=== PATIENT | female | born 1945 | race Caucasian/White ===

== ENCOUNTER 2020-01-28 20:04 | Inpatient (IN) ==
[2020-01-28] MEDS ORDERED: Heparin 5000 UNITS/ML 1 mL VIAL SUBCUT SCH (21:00)
[2020-01-28] MEDS ORDERED: Propofol 10 mg/ml 100 ML BTL 100 ML IV SCH ×2 (21:00→22:11)
[2020-01-28 21:07] LABS: Activated Partial Thrombo Time 29.1 seconds (26.0-38.0); INR 1.8 (0.82-1.09)
[2020-01-28 21:11] LABS: Hematocrit 30 % (35-47); Hemoglobin 9.9 g/dL (12.0-16.0); Mean Corpuscular HGB Conc 33 g/dL (31-36); Mean Corpuscular Hemoglobin 25 pg (27-31); Mean Corpuscular Volume 74 fL (80-97); Mean Platelet Volume 7.8 fL (7.4-10.4); Platelet Count 347 10^3/uL (150-450); Red Blood Count 4.04 10^6 /uL (3.70-4.87); Red Cell Distribution Width 17 % (10-15); White Blood Count 12.3 10^3/uL (3.5-10.8)
[2020-01-28 21:12] LABS: ABS Lymphocytes 0.4 10^3/ul (1.0-4.8); ABS Monocytes 0.6 10^3/ul (0-0.8); ABS Neutrophils 11.2 10^3/ul (1.5-7.7); Lymphocyte % 3.4 %
[2020-01-28 21:14] LABS: Urine Appearance Cloudy; Urine Bilirubin Negative (Negative); Urine Blood Negative (Negative); Urine Color Yellow; Urine Glucose 2+(150 mg/dL) (Negative); Urine Ketones Negative (Negative); Urine Nitrite Negative (Negative); Urine Protein 2+(100 mg/dL) (Negative); Urine Urobilinogen Negative (Negative)
[2020-01-28 21:15] LABS: Albumin 3.5 g/dL (3.2-5.2); Albumin/Globulin Ratio 1.3 (1-3); BUN/Creatinine Ratio 23.8 (8-20); EGFR African American 111.5 (>60); EGFR Non-African American 92.1 (>60); Globulin 2.6 g/dL (2-4); Potassium 3.7 mmol/L (3.5-5.0); Total Bilirubin 0.4 mg/dL (0.2-1.0); Total Protein 6.1 g/dL (6.4-8.9)
[2020-01-28 21:19] LABS: Urine Bacteria Absent (Absent); Urine Red Blood Cell 3+(>10/hpf) (Absent); Urine Squamous Epithelial Cell Present (Absent); Urine White Blood Cell Trace(0-5/hpf) (Absent)
[2020-01-28] MEDS ORDERED: Dexamethasone IV 4 MG/ML VIAL 1 ml VIAL IV SLOW PU ONE (21:31)
[2020-01-28] MEDS ORDERED: Remdesivir 5 MG/ML LIQ IV Vial 200 MG in NS 0.9% 250 ml 210 ML IV ONE (21:32)
[2020-01-28 21:45] LABS: Magnesium 1.5 mg/dL (1.9-2.7)
[2020-01-28 21:47] LABS: Troponin I 0.01 ng/mL (<0.03)
[2020-01-28] MEDS ORDERED: Magnesium Sulfate IV 3 GM in NS 0.9% 100 ml BAG 100 ML IVPB ONE (22:04)
[2020-01-28] MEDS: Pantoprazole VIAL 40 MG VIAL IV SCH (22:08)
[2020-01-28] MEDS: Propofol* 20 ML VIAL - FOR IV LINE PRIMING ONLY SCH (22:23)
[2020-01-28] MEDS: Heparin DRIP 25,000 UNITS BAG 25,000 UNITS/500 ML BAG IV SCH (22:42)
[2020-01-28] MEDS ORDERED: Heparin 5000 UNITS/ML 1 mL VIAL IV SCH (23:00)
[2020-01-28] MEDS ORDERED: Atropine 1 MG/ML INJ 1 ML VIAL IV PUSH PRN (23:42)
[2020-01-28] MEDS ORDERED: Atropine 0.1 MG/ML 10 ml SYR (1 mg) ONE (23:44)
[2020-01-28] MEDS ORDERED: Atropine 0.1 MG/ML 10 ml SYR (1 mg) IV PUSH PRN (23:46)
[2020-01-29] MEDS: Chlorhexidine MOUTHWASH 0.12% 15 ML UDC TOPICAL SCH ×7 (01:14→23:14)
[2020-01-29] MEDS ORDERED: Midazolam 5 mg/5 ml VIAL 1 mg/ml 5 ml VIAL (5 mg) IV SLOW PU ONE (04:14)
[2020-01-29] MEDS ORDERED: Midazolam 5 mg/5 ml VIAL 1 mg/ml 5 ml VIAL (5 mg) ONE (04:16)
[2020-01-29] MEDS ORDERED: Dextrose 50% Syringe 50 ml 25 GM/50 ML SYRINGE IV PUSH PRN (04:48)
[2020-01-29] MEDS ORDERED: fentaNYL INFUSION 50 MCG/ML 2,500 MCG/50 ML BAG IV SCH ×2 (05:00→16:00)
[2020-01-29 05:05] LABS: Hematocrit 28 % (35-47); Mean Corpuscular HGB Conc 33 g/dL (31-36); Mean Corpuscular Hemoglobin 24 pg (27-31); Mean Corpuscular Volume 73 fL (80-97); Mean Platelet Volume 7.7 fL (7.4-10.4); Platelet Count 285 10^3/uL (150-450); Red Blood Count 3.78 10^6 /uL (3.70-4.87); Red Cell Distribution Width 17 % (10-15); White Blood Count 8.4 10^3/uL (3.5-10.8)
[2020-01-29 05:08] LABS: BUN/Creatinine Ratio 25.4 (8-20); Calcium 7.8 mg/dL (8.6-10.3); EGFR African American 120.2 (>60); EGFR Non-African American 99.4 (>60); Potassium 3.7 mmol/L (3.5-5.0)
[2020-01-29 05:40] LABS: Magnesium 2.2 mg/dL (1.9-2.7)
[2020-01-29] MEDS ORDERED: Furosemide 40 mg/4 ml IV VIAL IV ONE (07:19)
[2020-01-29] MEDS ORDERED: Furosemide 40 mg/4 ml IV VIAL ONE (07:20)
[2020-01-29 08:44] LABS: ABS Lymphocytes 0.6 10^3/ul (1.0-4.8); ABS Monocytes 0.5 10^3/ul (0-0.8); ABS Neutrophils 7.4 10^3/ul (1.5-7.7); Lymphocyte % 6.6 %; Microcytosis 2+
[2020-01-29 08:46] LABS: Acanthocytes 1+
[2020-01-29 08:47] LABS: Burr Cells 2+
[2020-01-29] MEDS ORDERED: fentaNYL 250 mcg/5 ml 50 MCG/ML 5 ml VIAL (250 MCG) ONE (10:14)
[2020-01-29] MEDS: Propofol* 20 ML VIAL - FOR IV LINE PRIMING ONLY SCH ×2 (11:00→20:26)
[2020-01-29] MEDS ORDERED: Midazolam 50 MG VIAL IV DRIP 50 ML IV SCH (16:00)
[2020-01-29 17:30] LABS: BUN/Creatinine Ratio 26.5 (8-20); Calcium 7.9 mg/dL (8.6-10.3); EGFR African American 102.1 (>60); EGFR Non-African American 84.4 (>60); Magnesium 2.1 mg/dL (1.9-2.7); Phosphorus 2.9 mg/dL (2.5-5.0); Potassium 3.5 mmol/L (3.5-5.0)
[2020-01-29] MEDS: Pantoprazole VIAL 40 MG VIAL IV SCH (22:10)
[2020-01-29] MEDS: Remdesivir 5 MG/ML LIQ IV Vial 100 MG in NS 0.9% 250 ml 230 ML IV SCH (22:10)
[2020-01-29] MEDS: Dexamethasone IV 4 MG/ML VIAL 1 ml VIAL IV SLOW PU SCH (22:10)
[2020-01-29] MEDS ORDERED: Potassium Chloride LIQUID 20 MEQ/15 ML LIQUID PO ONE (22:41)
[2020-01-29] MEDS ORDERED: Lactated Ringers 1000 ml BAG 500 ML IV SCH (23:00)
[2020-01-30] MEDS: Chlorhexidine MOUTHWASH 0.12% 15 ML UDC TOPICAL SCH ×5 (03:46→20:22)
[2020-01-30 05:28] LABS: ABS Lymphocytes 0.2 10^3/ul (1.0-4.8); ABS Monocytes 0.4 10^3/ul (0-0.8); ABS Neutrophils 9.2 10^3/ul (1.5-7.7); Hematocrit 28 % (35-47); Hemoglobin 9.1 g/dL (12.0-16.0); Lymphocyte % 2.5 %; Mean Corpuscular HGB Conc 32 g/dL (31-36); Mean Corpuscular Hemoglobin 24 pg (27-31); Mean Corpuscular Volume 75 fL (80-97); Mean Platelet Volume 7.7 fL (7.4-10.4); Platelet Count 284 10^3/uL (150-450); Red Blood Count 3.78 10^6 /uL (3.70-4.87); Red Cell Distribution Width 18 % (10-15); White Blood Count 9.9 10^3/uL (3.5-10.8)
[2020-01-30 05:45] LABS: Albumin 3.3 g/dL (3.2-5.2); Albumin/Globulin Ratio 1.4 (1-3); Calcium 7.8 mg/dL (8.6-10.3); EGFR African American 91.2 (>60); EGFR Non-African American 75.3 (>60); Globulin 2.4 g/dL (2-4); Magnesium 2.1 mg/dL (1.9-2.7); Potassium 4.2 mmol/L (3.5-5.0); Total Bilirubin 0.6 mg/dL (0.2-1.0); Total Protein 5.7 g/dL (6.4-8.9)
[2020-01-30] MEDS: Heparin DRIP 25,000 UNITS BAG 25,000 UNITS/500 ML BAG IV SCH (07:42)
[2020-01-30] MEDS: Propofol* 20 ML VIAL - FOR IV LINE PRIMING ONLY SCH (09:09)
[2020-01-30] MEDS ORDERED: CALCIUM GLUCONATE 1GM/50ML NS 1 GM/50 ML BAG IV ONE (09:28)
[2020-01-30] MEDS ORDERED: fentaNYL INFUSION 50 MCG/ML 2,500 MCG/50 ML BAG IV SCH (10:50)
[2020-01-30] MEDS: Midazolam 50 MG VIAL IV DRIP 50 ML IV SCH (11:12)
[2020-01-30] MEDS ORDERED: Midazolam 5 mg/5 ml VIAL 1 mg/ml 5 ml VIAL (5 mg) IV SLOW PU ONE (12:15)
[2020-01-30] MEDS: Enoxaparin 30 MG/0.3 ML SYR SUBCUT SCH ×2 (13:41→22:39)
[2020-01-30] MEDS ORDERED: Polyethylene Glycol 3350 17 GM PACKET PO ONE (15:00)
[2020-01-30] MEDS: Docusate LIQ 100 MG/10 ML UDC PO PRN (17:21)
[2020-01-30] MEDS: Remdesivir 5 MG/ML LIQ IV Vial 100 MG in NS 0.9% 250 ml 230 ML IV SCH (22:38)
[2020-01-30] MEDS: Pantoprazole VIAL 40 MG VIAL IV SCH (22:39)
[2020-01-30] MEDS: Dexamethasone IV 4 MG/ML VIAL 1 ml VIAL IV SLOW PU SCH (22:39)
[2020-01-31] MEDS: Chlorhexidine MOUTHWASH 0.12% 15 ML UDC TOPICAL SCH ×6 (00:25→21:29)
[2020-01-31 05:11] LABS: Albumin 3.3 g/dL (3.2-5.2); Albumin/Globulin Ratio 1.3 (1-3); BUN/Creatinine Ratio 36.1 (8-20); Calcium 8.2 mg/dL (8.6-10.3); EGFR African American 115.7 (>60); EGFR Non-African American 95.6 (>60); Globulin 2.5 g/dL (2-4); Potassium 4.4 mmol/L (3.5-5.0); Total Bilirubin 0.8 mg/dL (0.2-1.0); Total Protein 5.8 g/dL (6.4-8.9)
[2020-01-31] MEDS: Midazolam 50 MG VIAL IV DRIP 50 ML IV SCH (07:08)
[2020-01-31] MEDS: Enoxaparin 30 MG/0.3 ML SYR SUBCUT SCH ×2 (09:02→23:09)
[2020-01-31] MEDS ORDERED: Polyethylene Glycol 3350 17 GM PACKET PO ONE (15:43)
[2020-01-31] MEDS: fentaNYL INFUSION 50 MCG/ML 2,500 MCG/50 ML BAG IV SCH (15:52)
[2020-01-31] MEDS: Docusate LIQ 100 MG/10 ML UDC PO PRN (16:38)
[2020-01-31] MEDS: Remdesivir 5 MG/ML LIQ IV Vial 100 MG in NS 0.9% 250 ml 230 ML IV SCH (23:08)
[2020-01-31] MEDS: Dexamethasone IV 4 MG/ML VIAL 1 ml VIAL IV SLOW PU SCH (23:09)
[2020-01-31] MEDS: Pantoprazole VIAL 40 MG VIAL IV SCH (23:09)
[2020-02-01] MEDS: Chlorhexidine MOUTHWASH 0.12% 15 ML UDC TOPICAL SCH ×7 (01:31→20:31)
[2020-02-01] MEDS: Midazolam 50 MG VIAL IV DRIP 50 ML IV SCH (03:29)
[2020-02-01 04:46] LABS: ABS Lymphocytes 0.2 10^3/ul (1.0-4.8); ABS Monocytes 0.4 10^3/ul (0-0.8); ABS Neutrophils 8.4 10^3/ul (1.5-7.7); Hematocrit 29 % (35-47); Hemoglobin 9.1 g/dL (12.0-16.0); Mean Corpuscular HGB Conc 32 g/dL (31-36); Mean Corpuscular Hemoglobin 24 pg (27-31); Mean Corpuscular Volume 75 fL (80-97); Mean Platelet Volume 7.9 fL (7.4-10.4); Platelet Count 259 10^3/uL (150-450); Red Blood Count 3.81 10^6 /uL (3.70-4.87); Red Cell Distribution Width 18 % (10-15); White Blood Count 8.9 10^3/uL (3.5-10.8)
[2020-02-01 05:01] LABS: Albumin/Globulin Ratio 1.4 (1-3); BUN/Creatinine Ratio 38.9 (8-20); EGFR African American 133.2 (>60); EGFR Non-African American 110.1 (>60); Globulin 2.2 g/dL (2-4); Potassium 4.2 mmol/L (3.5-5.0); Total Bilirubin 0.7 mg/dL (0.2-1.0); Total Protein 5.2 g/dL (6.4-8.9)
[2020-02-01] MEDS: Docusate LIQ 100 MG/10 ML UDC PO PRN (08:22)
[2020-02-01] MEDS: Enoxaparin 30 MG/0.3 ML SYR SUBCUT SCH ×2 (08:22→22:22)
[2020-02-01] MEDS: fentaNYL INFUSION 50 MCG/ML 2,500 MCG/50 ML BAG IV SCH (13:53)
[2020-02-01] MEDS: Pantoprazole VIAL 40 MG VIAL IV SCH (22:22)
[2020-02-01] MEDS: Dexamethasone IV 4 MG/ML VIAL 1 ml VIAL IV SLOW PU SCH (22:22)
[2020-02-01] MEDS: Metoprolol Tartrate 5 mg VIAL 5 ml VIAL (1 mg/ml) IV PRN (22:23)
[2020-02-01] MEDS: Remdesivir 5 MG/ML LIQ IV Vial 100 MG in NS 0.9% 250 ml 230 ML IV SCH (22:36)
[2020-02-02] MEDS: Midazolam 50 MG VIAL IV DRIP 50 ML IV SCH (00:21)
[2020-02-02] MEDS: Chlorhexidine MOUTHWASH 0.12% 15 ML UDC TOPICAL SCH ×6 (00:44→20:26)
[2020-02-02 05:01] LABS: ABS Lymphocytes 0.2 10^3/ul (1.0-4.8); ABS Monocytes 0.4 10^3/ul (0-0.8); ABS Neutrophils 9.2 10^3/ul (1.5-7.7); Hematocrit 29 % (35-47); Hemoglobin 9.1 g/dL (12.0-16.0); Lymphocyte % 1.8 %; Mean Corpuscular HGB Conc 31 g/dL (31-36); Mean Corpuscular Hemoglobin 24 pg (27-31); Mean Corpuscular Volume 76 fL (80-97); Mean Platelet Volume 7.9 fL (7.4-10.4); Platelet Count 326 10^3/uL (150-450); Red Blood Count 3.85 10^6 /uL (3.70-4.87); Red Cell Distribution Width 18 % (10-15); White Blood Count 9.8 10^3/uL (3.5-10.8)
[2020-02-02 05:38] LABS: Albumin/Globulin Ratio 1.4 (1-3); BUN/Creatinine Ratio 38.5 (8-20); Calcium 8.2 mg/dL (8.6-10.3); EGFR African American 139.1 (>60); Globulin 2.2 g/dL (2-4); Potassium 4.8 mmol/L (3.5-5.0); Total Bilirubin 0.4 mg/dL (0.2-1.0); Total Protein 5.2 g/dL (6.4-8.9)
[2020-02-02] MEDS: Insulin GLARGINE 100 un/ml 10 ml VIAL SUBCUT SCH (09:17)
[2020-02-02] MEDS: Enoxaparin 30 MG/0.3 ML SYR SUBCUT SCH ×2 (09:18→21:25)
[2020-02-02] MEDS: fentaNYL INFUSION 50 MCG/ML 2,500 MCG/50 ML BAG IV SCH (13:00)
[2020-02-02] MEDS: Metoprolol Tartrate 5 mg VIAL 5 ml VIAL (1 mg/ml) IV PRN (15:40)
[2020-02-02] MEDS: Docusate LIQ 100 MG/10 ML UDC PO PRN (20:26)
[2020-02-02] MEDS: Dexamethasone IV 4 MG/ML VIAL 1 ml VIAL IV SLOW PU SCH (21:25)
[2020-02-02] MEDS: Pantoprazole VIAL 40 MG VIAL IV SCH (21:26)
[2020-02-02] MEDS: Remdesivir 5 MG/ML LIQ IV Vial 100 MG in NS 0.9% 250 ml 230 ML IV SCH (21:44)
[2020-02-03] MEDS: Chlorhexidine MOUTHWASH 0.12% 15 ML UDC TOPICAL SCH ×7 (00:22→23:22)
[2020-02-03] MEDS: Midazolam 50 MG VIAL IV DRIP 50 ML IV SCH (01:10)
[2020-02-03 04:23] LABS: ABS Lymphocytes 0.2 10^3/ul (1.0-4.8); ABS Monocytes 0.9 10^3/ul (0-0.8); ABS Neutrophils 11.3 10^3/ul (1.5-7.7); Eosinophil % 0.1 %; Hematocrit 30 % (35-47); Hemoglobin 9.6 g/dL (12.0-16.0); Lymphocyte % 1.9 %; Mean Corpuscular HGB Conc 32 g/dL (31-36); Mean Corpuscular Hemoglobin 24 pg (27-31); Mean Corpuscular Volume 75 fL (80-97); Mean Platelet Volume 7.8 fL (7.4-10.4); Platelet Count 353 10^3/uL (150-450); Red Blood Count 4.03 10^6 /uL (3.70-4.87); Red Cell Distribution Width 18 % (10-15); White Blood Count 12.5 10^3/uL (3.5-10.8)
[2020-02-03 04:39] LABS: Albumin 3.1 g/dL (3.2-5.2); Albumin/Globulin Ratio 1.3 (1-3); BUN/Creatinine Ratio 46.8 (8-20); Calcium 8.5 mg/dL (8.6-10.3); EGFR African American 156.3 (>60); EGFR Non-African American 129.2 (>60); Globulin 2.4 g/dL (2-4); Magnesium 1.9 mg/dL (1.9-2.7); Potassium 4.9 mmol/L (3.5-5.0); Total Bilirubin 0.5 mg/dL (0.2-1.0); Total Protein 5.5 g/dL (6.4-8.9)
[2020-02-03] MEDS: Insulin GLARGINE 100 un/ml 10 ml VIAL SUBCUT SCH (07:32)
[2020-02-03] MEDS: fentaNYL INFUSION 50 MCG/ML 2,500 MCG/50 ML BAG IV SCH (10:30)
[2020-02-03] MEDS: Enoxaparin 30 MG/0.3 ML SYR SUBCUT SCH ×2 (10:37→23:22)
[2020-02-03] MEDS: Metoprolol Tartrate 5 mg VIAL 5 ml VIAL (1 mg/ml) IV PRN (11:33)
[2020-02-03] MEDS ORDERED: Furosemide 40 mg/4 ml IV VIAL IV SLOW PU ONE (15:44)
[2020-02-03] MEDS: Dexamethasone IV 4 MG/ML VIAL 1 ml VIAL IV SLOW PU SCH (23:22)
[2020-02-03] MEDS: Docusate LIQ 100 MG/10 ML UDC PO PRN (23:22)
[2020-02-03] MEDS: Pantoprazole VIAL 40 MG VIAL IV SCH (23:22)
[2020-02-04 04:22] LABS: ABS Basophils 0.1 10^3/ul (0-0.2); ABS Lymphocytes 0.2 10^3/ul (1.0-4.8); ABS Monocytes 1.1 10^3/ul (0-0.8); ABS Neutrophils 13.2 10^3/ul (1.5-7.7); Eosinophil % 0.2 %; Hematocrit 32 % (35-47); Lymphocyte % 1.3 %; Mean Corpuscular HGB Conc 31 g/dL (31-36); Mean Corpuscular Hemoglobin 24 pg (27-31); Mean Corpuscular Volume 76 fL (80-97); Mean Platelet Volume 8.3 fL (7.4-10.4); Platelet Count 354 10^3/uL (150-450); Red Blood Count 4.24 10^6 /uL (3.70-4.87); Red Cell Distribution Width 18 % (10-15); White Blood Count 14.6 10^3/uL (3.5-10.8)
[2020-02-04 04:43] LABS: Anion Gap 4 mmol/L (2-11); BUN/Creatinine Ratio 42.6 (8-20); Blood Urea Nitrogen 23 mg/dL (6-24); CO2 Carbon Dioxide 39 mmol/L (22-32); Chloride 96 mmol/L (101-111); EGFR African American 133.2 (>60); EGFR Non-African American 110.1 (>60); Glucose 331 mg/dL (70-100); Sodium 139 mmol/L (135-145)
[2020-02-04 05:01] LABS: ALT 54 U/L (7-52); AST 49 U/L (13-39); Albumin 2.9 g/dL (3.2-5.2); Albumin/Globulin Ratio 1.2 (1-3); Alkaline Phosphatase 113 U/L (34-104); Calcium 8.6 mg/dL (8.6-10.3); Globulin 2.5 g/dL (2-4); Phosphorus 4.3 mg/dL (2.5-5.0); Total Protein 5.4 g/dL (6.4-8.9)
[2020-02-04] MEDS: Chlorhexidine MOUTHWASH 0.12% 15 ML UDC TOPICAL SCH ×5 (05:53→20:31)
[2020-02-04] MEDS: Insulin GLARGINE 100 un/ml 10 ml VIAL SUBCUT SCH (08:35)
[2020-02-04] MEDS: Enoxaparin 30 MG/0.3 ML SYR SUBCUT SCH ×2 (09:04→22:45)
[2020-02-04 12:49] LABS: Urine Appearance Cloudy; Urine Bilirubin Negative (Negative); Urine Blood Negative (Negative); Urine Color Yellow; Urine Glucose 3+(>=500 mg/dL) (Negative); Urine Ketones Negative (Negative); Urine Nitrite Negative (Negative); Urine Protein Negative (Negative); Urine Specific Gravity 1.026 (1.010-1.030); Urine Urobilinogen Positive (Negative)
[2020-02-04] MEDS: Dexamethasone IV 4 MG/ML VIAL 1 ml VIAL IV SLOW PU SCH (22:45)
[2020-02-04] MEDS: Pantoprazole VIAL 40 MG VIAL IV SCH (22:45)
[2020-02-05] MEDS: Chlorhexidine MOUTHWASH 0.12% 15 ML UDC TOPICAL SCH ×7 (00:14→23:52)
[2020-02-05] MEDS: fentaNYL 100 mcg/2 ml 50 MCG/ML VIAL IV SLOW PU PRN (01:31)
[2020-02-05] MEDS: Metoprolol Tartrate 5 mg VIAL 5 ml VIAL (1 mg/ml) IV PRN (01:42)
[2020-02-05] MEDS ORDERED: Midazolam 50 MG VIAL IV DRIP 50 ML IV SCH (02:30)
[2020-02-05] MEDS: cefTRIAXone 1 gm/50 mL NS BAG 1 GM/50 ML BAG IVPB SCH (02:44)
[2020-02-05] MEDS ORDERED: Norepinephrine 16MCG/ML IVPRE 4,000 MCG/250 ML BAG IV ONE (03:35)
[2020-02-05 04:36] LABS: Hematocrit 33 % (35-47); Hemoglobin 10.2 g/dL (12.0-16.0); Mean Corpuscular HGB Conc 31 g/dL (31-36); Mean Corpuscular Hemoglobin 24 pg (27-31); Mean Corpuscular Volume 76 fL (80-97); Mean Platelet Volume 8.5 fL (7.4-10.4); Platelet Count 415 10^3/uL (150-450); Red Blood Count 4.32 10^6 /uL (3.70-4.87); Red Cell Distribution Width 18 % (10-15); White Blood Count 13.1 10^3/uL (3.5-10.8)
[2020-02-05 04:46] LABS: Albumin/Globulin Ratio 1.1 (1-3); BUN/Creatinine Ratio 42.6 (8-20); Calcium 8.8 mg/dL (8.6-10.3); EGFR African American 115.7 (>60); EGFR Non-African American 95.6 (>60); Globulin 2.8 g/dL (2-4); Total Bilirubin 0.6 mg/dL (0.2-1.0); Total Protein 5.8 g/dL (6.4-8.9)
[2020-02-05 04:53] LABS: Potassium 5.4 mmol/L (3.5-5.0)
[2020-02-05] MEDS ORDERED: Norepinephrine 16MCG/ML IVPRE 4,000 MCG/250 ML BAG IV SCH (06:00)
[2020-02-05] MEDS: Insulin GLARGINE 100 un/ml 10 ml VIAL SUBCUT SCH (08:19)
[2020-02-05] MEDS: Enoxaparin 30 MG/0.3 ML SYR SUBCUT SCH ×2 (08:26→22:07)
[2020-02-05] MEDS: Pantoprazole VIAL 40 MG VIAL IV SCH (22:07)
[2020-02-05] MEDS: Dexamethasone IV 4 MG/ML VIAL 1 ml VIAL IV SLOW PU SCH (22:07)
[2020-02-06] MEDS: cefTRIAXone 1 gm/50 mL NS BAG 1 GM/50 ML BAG IVPB SCH (02:21)
[2020-02-06] MEDS: fentaNYL 100 mcg/2 ml 50 MCG/ML VIAL IV SLOW PU PRN ×2 (03:06→03:18)
[2020-02-06] MEDS ORDERED: fentaNYL 100 mcg/2 ml 50 MCG/ML VIAL ONE (03:14)
[2020-02-06] MEDS: Chlorhexidine MOUTHWASH 0.12% 15 ML UDC TOPICAL SCH ×4 (03:22→15:55)
[2020-02-06 03:56] LABS: Hematocrit 33 % (35-47); Hemoglobin 10.5 g/dL (12.0-16.0); Mean Corpuscular HGB Conc 32 g/dL (31-36); Mean Corpuscular Hemoglobin 24 pg (27-31); Mean Corpuscular Volume 76 fL (80-97); Mean Platelet Volume 8.5 fL (7.4-10.4); Platelet Count 403 10^3/uL (150-450); Red Cell Distribution Width 18 % (10-15); White Blood Count 14.7 10^3/uL (3.5-10.8)
[2020-02-06 04:09] LABS: BUN/Creatinine Ratio 51.8 (8-20); Calcium 8.7 mg/dL (8.6-10.3); EGFR African American 127.7 (>60); EGFR Non-African American 105.5 (>60); Magnesium 2.2 mg/dL (1.9-2.7)
[2020-02-06 04:10] LABS: Potassium 5.2 mmol/L (3.5-5.0)
[2020-02-06] MEDS: Insulin GLARGINE 100 un/ml 10 ml VIAL SUBCUT SCH (08:46)
[2020-02-06] MEDS: Enoxaparin 30 MG/0.3 ML SYR SUBCUT SCH ×2 (08:54→21:38)
[2020-02-06] MEDS: Pantoprazole VIAL 40 MG VIAL IV SCH (21:38)
[2020-02-06] MEDS: D5LR 1000 ml BAG 1,000 ML IV SCH (23:54)
[2020-02-07] MEDS: cefTRIAXone 1 gm/50 mL NS BAG 1 GM/50 ML BAG IVPB SCH (02:21)
[2020-02-07 04:19] LABS: ABS Basophils 0.1 10^3/ul (0-0.2); ABS Lymphocytes 0.7 10^3/ul (1.0-4.8); ABS Monocytes 1.3 10^3/ul (0-0.8); ABS Neutrophils 9.4 10^3/ul (1.5-7.7); Eosinophil % 0.3 %; Hematocrit 32 % (35-47); Lymphocyte % 6.1 %; Mean Corpuscular HGB Conc 31 g/dL (31-36); Mean Corpuscular Hemoglobin 24 pg (27-31); Mean Corpuscular Volume 76 fL (80-97); Mean Platelet Volume 8.1 fL (7.4-10.4); Platelet Count 365 10^3/uL (150-450); Red Blood Count 4.21 10^6 /uL (3.70-4.87); Red Cell Distribution Width 19 % (10-15); White Blood Count 11.5 10^3/uL (3.5-10.8)
[2020-02-07 04:35] LABS: BUN/Creatinine Ratio 61.9 (8-20); Calcium 8.4 mg/dL (8.6-10.3); EGFR Non-African American 147.1 (>60); Magnesium 2.2 mg/dL (1.9-2.7); Potassium 4.1 mmol/L (3.5-5.0)
[2020-02-07] MEDS: Enoxaparin 30 MG/0.3 ML SYR SUBCUT SCH ×2 (08:14→21:57)
[2020-02-07] MEDS: Metoprolol Tartrate 5 mg VIAL 5 ml VIAL (1 mg/ml) IV PRN (16:11)
[2020-02-07] MEDS: D5LR 1000 ml BAG 1,000 ML IV SCH (18:22)
[2020-02-07] MEDS: Pantoprazole VIAL 40 MG VIAL IV SCH (21:58)
[2020-02-08] MEDS: cefTRIAXone 1 gm/50 mL NS BAG 1 GM/50 ML BAG IVPB SCH (02:07)
[2020-02-08 04:57] LABS: ABS Eosinophils 0.1 10^3/ul (0-0.6); ABS Lymphocytes 0.5 10^3/ul (1.0-4.8); ABS Monocytes 1.2 10^3/ul (0-0.8); BUN/Creatinine Ratio 44.2 (8-20); Calcium 7.9 mg/dL (8.6-10.3); EGFR African American 173.2 (>60); EGFR Non-African American 143.1 (>60); Eosinophil % 1.3 %; Hematocrit 31 % (35-47); Lymphocyte % 5.2 %; Mean Corpuscular HGB Conc 32 g/dL (31-36); Mean Corpuscular Hemoglobin 25 pg (27-31); Mean Corpuscular Volume 77 fL (80-97); Mean Platelet Volume 8.4 fL (7.4-10.4); Nucleated Red Blood Cells % 0.2; Phosphorus 2.6 mg/dL (2.5-5.0); Platelet Count 307 10^3/uL (150-450); Potassium 3.8 mmol/L (3.5-5.0); Red Blood Count 4.06 10^6 /uL (3.70-4.87); Red Cell Distribution Width 18 % (10-15); White Blood Count 9.8 10^3/uL (3.5-10.8)
[2020-02-08] MEDS: Enoxaparin 30 MG/0.3 ML SYR SUBCUT SCH ×2 (08:45→21:40)
[2020-02-08] MEDS: SPIRIVA Respimat (tiotropium) 2.5 mcg/inh Inhaler INH SCH (11:48)
[2020-02-08] MEDS: D5LR 1000 ml BAG 1,000 ML IV SCH (14:32)
[2020-02-08] MEDS ORDERED: TPN 24 HR with D10W 1000 ml BAG 1,000 ML, Amino Acid Infusion 10% 850 ML, Sterile Water... IV SCH (17:00)
[2020-02-08] MEDS: Pantoprazole VIAL 40 MG VIAL IV SCH (21:41)
[2020-02-09] MEDS: cefTRIAXone 1 gm/50 mL NS BAG 1 GM/50 ML BAG IVPB SCH (03:30)
[2020-02-09 04:40] LABS: ABS Eosinophils 0.2 10^3/ul (0-0.6); ABS Lymphocytes 0.7 10^3/ul (1.0-4.8); ABS Monocytes 1.3 10^3/ul (0-0.8); ABS Neutrophils 10.3 10^3/ul (1.5-7.7); Eosinophil % 1.9 %; Hematocrit 30 % (35-47); Hemoglobin 9.5 g/dL (12.0-16.0); Lymphocyte % 5.8 %; Mean Corpuscular HGB Conc 32 g/dL (31-36); Mean Corpuscular Hemoglobin 24 pg (27-31); Mean Corpuscular Volume 77 fL (80-97); Mean Platelet Volume 8.2 fL (7.4-10.4); Platelet Count 277 10^3/uL (150-450); Red Blood Count 3.89 10^6 /uL (3.70-4.87); Red Cell Distribution Width 18 % (10-15); White Blood Count 12.6 10^3/uL (3.5-10.8)
[2020-02-09 04:59] LABS: BUN/Creatinine Ratio 36.2 (8-20); Calcium 7.8 mg/dL (8.6-10.3); EGFR African American 156.3 (>60); EGFR Non-African American 129.2 (>60)
[2020-02-09] MEDS: SPIRIVA Respimat (tiotropium) 2.5 mcg/inh Inhaler INH SCH (08:19)
[2020-02-09 08:28] LABS: Phosphorus 2.3 mg/dL (2.5-5.0)
[2020-02-09] MEDS ORDERED: Albuterol HFA INHALER 8 gm MDI INH PRN (10:19)
[2020-02-09] MEDS: Enoxaparin 30 MG/0.3 ML SYR SUBCUT SCH ×2 (11:18→20:34)
[2020-02-09] MEDS: TPN 24 HR with D10W 1000 ml BAG 1,000 ML, Amino Acid Infusion 10% 850 ML, Sterile Water... IV SCH (16:33)
[2020-02-09] MEDS: Mometasone/Formoter 100/5 MDI INH SCH (18:59)
[2020-02-09] MEDS: Pantoprazole VIAL 40 MG VIAL IV SCH (20:33)
[2020-02-09] MEDS: Insulin GLARGINE 100 un/ml 10 ml VIAL SUBCUT SCH (20:33)
[2020-02-10] MEDS ORDERED: NS 0.9% IV ONE (00:45)
[2020-02-10 02:16] LABS: ABS Eosinophils 0.2 10^3/ul (0-0.6); ABS Lymphocytes 0.7 10^3/ul (1.0-4.8); ABS Monocytes 1.3 10^3/ul (0-0.8); ABS Neutrophils 11.3 10^3/ul (1.5-7.7); Eosinophil % 1.6 %; Hematocrit 30 % (35-47); Hemoglobin 9.5 g/dL (12.0-16.0); Lymphocyte % 5.1 %; Mean Corpuscular HGB Conc 32 g/dL (31-36); Mean Corpuscular Hemoglobin 24 pg (27-31); Mean Corpuscular Volume 77 fL (80-97); Mean Platelet Volume 8.3 fL (7.4-10.4); Nucleated Red Blood Cells % 0.1; Platelet Count 272 10^3/uL (150-450); Red Blood Count 3.91 10^6 /uL (3.70-4.87); Red Cell Distribution Width 19 % (10-15); White Blood Count 13.5 10^3/uL (3.5-10.8)
[2020-02-10 02:33] LABS: ALT 21 U/L (7-52); Albumin 2.8 g/dL (3.2-5.2); Albumin/Globulin Ratio 1.2 (1-3); Alkaline Phosphatase 61 U/L (34-104); BUN/Creatinine Ratio 34.9 (8-20); Blood Urea Nitrogen 15 mg/dL (6-24); CO2 Carbon Dioxide 23 mmol/L (22-32); Calcium 7.7 mg/dL (8.6-10.3); Chloride 104 mmol/L (101-111); EGFR African American 173.2 (>60); EGFR Non-African American 143.1 (>60); Globulin 2.4 g/dL (2-4); Glucose 285 mg/dL (70-100); Sodium 131 mmol/L (135-145); Total Protein 5.2 g/dL (6.4-8.9)
[2020-02-10 02:48] LABS: Anion Gap 4 mmol/L (2-11)
[2020-02-10] MEDS ORDERED: Furosemide 40 mg/4 ml IV VIAL IV ONE (03:48)
[2020-02-10] MEDS ORDERED: Furosemide 40 mg/4 ml IV VIAL ONE (03:49)
[2020-02-10] MEDS: Metoprolol Tartrate 5 mg VIAL 5 ml VIAL (1 mg/ml) IV PRN (03:52)
[2020-02-10] MEDS: cefTRIAXone 1 gm/50 mL NS BAG 1 GM/50 ML BAG IVPB SCH (04:39)
[2020-02-10 05:12] LABS: Albumin 3.2 g/dL (3.2-5.2); Albumin/Globulin Ratio 1.1 (1-3); Calcium 7.8 mg/dL (8.6-10.3); EGFR African American 145.5 (>60); EGFR Non-African American 120.3 (>60); Globulin 2.8 g/dL (2-4); Magnesium 1.9 mg/dL (1.9-2.7); Phosphorus 2.9 mg/dL (2.5-5.0); Potassium 3.9 mmol/L (3.5-5.0); Total Bilirubin 0.6 mg/dL (0.2-1.0)
[2020-02-10] MEDS: SPIRIVA Respimat (tiotropium) 2.5 mcg/inh Inhaler INH SCH (07:38)
[2020-02-10] MEDS: Mometasone/Formoter 100/5 MDI INH SCH ×2 (07:40→19:23)
[2020-02-10] MEDS: Cefepime 1 GM in Dextrose 1 GM/50 ML BAG IV SCH ×2 (08:32→20:52)
[2020-02-10] MEDS: Enoxaparin 30 MG/0.3 ML SYR SUBCUT SCH ×2 (09:08→21:14)
[2020-02-10 09:12] LABS: Urine Appearance Clear; Urine Bacteria 1+ (Absent); Urine Bilirubin Negative (Negative); Urine Blood Negative (Negative); Urine Color Straw; Urine Glucose Negative (Negative); Urine Ketones Negative (Negative); Urine Nitrite Negative (Negative); Urine Protein Negative (Negative); Urine Red Blood Cell Trace(0-2/hpf) (Absent); Urine Specific Gravity 1.004 (1.010-1.030); Urine Squamous Epithelial Cell Present (Absent); Urine Urobilinogen Negative (Negative); Urine White Blood Cell Trace(0-5/hpf) (Absent)
[2020-02-10] MEDS ORDERED: Anidulafungin 200 MG in NS 0.9% 200 ML IVPB ONE (14:00)
[2020-02-10] MEDS: TPN 24 HR with D10W 1000 ml BAG 1,000 ML, Amino Acid Infusion 10% 850 ML, Sterile Water... IV SCH (17:01)
[2020-02-10] MEDS: Insulin GLARGINE 100 un/ml 10 ml VIAL SUBCUT SCH (20:54)
[2020-02-10] MEDS: Pantoprazole VIAL 40 MG VIAL IV SCH (20:58)
[2020-02-11] MEDS ORDERED: Metoprolol Tartrate 5 mg VIAL 5 ml VIAL (1 mg/ml) IV ONE (02:11)
[2020-02-11] MEDS ORDERED: Metoprolol Tartrate 5 mg VIAL 5 ml VIAL (1 mg/ml) ONE (02:19)
[2020-02-11] MEDS ORDERED: Amiodarone 360 MG IVPREMIX 360 MG/200 ML BAG IV ONE (02:59)
[2020-02-11] MEDS ORDERED: Amiodarone IV 150 mg/3 ml VIAL IV PUSH ONE (02:59)
[2020-02-11] MEDS: Cefepime 1 GM in Dextrose 1 GM/50 ML BAG IV SCH ×2 (07:51→20:23)
[2020-02-11] MEDS: Mometasone/Formoter 100/5 MDI INH SCH ×2 (07:55→19:53)
[2020-02-11] MEDS: SPIRIVA Respimat (tiotropium) 2.5 mcg/inh Inhaler INH SCH (07:55)
[2020-02-11] MEDS: Enoxaparin 30 MG/0.3 ML SYR SUBCUT SCH ×2 (08:51→20:21)
[2020-02-11 12:32] LABS: Hematocrit 31 % (35-47); Hemoglobin 9.8 g/dL (12.0-16.0); Mean Corpuscular HGB Conc 32 g/dL (31-36); Mean Corpuscular Hemoglobin 25 pg (27-31); Mean Corpuscular Volume 77 fL (80-97); Mean Platelet Volume 8.6 fL (7.4-10.4); Platelet Count 278 10^3/uL (150-450); Red Blood Count 3.96 10^6 /uL (3.70-4.87); Red Cell Distribution Width 19 % (10-15); White Blood Count 16.5 10^3/uL (3.5-10.8)
[2020-02-11 12:44] LABS: ABS Basophils 0.1 10^3/ul (0-0.2); ABS Eosinophils 0.1 10^3/ul (0-0.6); ABS Lymphocytes 0.7 10^3/ul (1.0-4.8); ABS Monocytes 1.6 10^3/ul (0-0.8); ABS Neutrophils 14.1 10^3/ul (1.5-7.7); Eosinophil % 0.5 %; Lymphocyte % 4.1 %
[2020-02-11 13:33] LABS: BUN/Creatinine Ratio 37.2 (8-20); Calcium 8.6 mg/dL (8.6-10.3); EGFR African American 173.2 (>60); EGFR Non-African American 143.1 (>60); Potassium 3.9 mmol/L (3.5-5.0)
[2020-02-11] MEDS ORDERED: Furosemide 40 mg/4 ml IV VIAL IV SLOW PU ONE (13:47)
[2020-02-11] MEDS: Anidulafungin 100 MG in NS 0.9% 100 ml BAG 100 ML IVPB SCH (13:59)
[2020-02-11] MEDS: TPN 24 HR with D10W 1000 ml BAG 1,000 ML, Amino Acid Infusion 10% 850 ML, Sterile Water... IV SCH (16:13)
[2020-02-11] MEDS: Pantoprazole VIAL 40 MG VIAL IV SCH (20:21)
[2020-02-11] MEDS: Insulin GLARGINE 100 un/ml 10 ml VIAL SUBCUT SCH (20:22)
[2020-02-12 04:08] LABS: Hematocrit 31 % (35-47); Hemoglobin 9.6 g/dL (12.0-16.0); Mean Corpuscular HGB Conc 31 g/dL (31-36); Mean Corpuscular Hemoglobin 25 pg (27-31); Mean Corpuscular Volume 80 fL (80-97); Mean Platelet Volume 8.5 fL (7.4-10.4); Platelet Count 253 10^3/uL (150-450); Red Blood Count 3.84 10^6 /uL (3.70-4.87); Red Cell Distribution Width 19 % (10-15); White Blood Count 16.4 10^3/uL (3.5-10.8)
[2020-02-12 04:19] LABS: ABS Basophils 0.1 10^3/ul (0-0.2); ABS Eosinophils 0.2 10^3/ul (0-0.6); ABS Lymphocytes 0.6 10^3/ul (1.0-4.8); ABS Monocytes 1.7 10^3/ul (0-0.8); ABS Neutrophils 13.9 10^3/ul (1.5-7.7); Lymphocyte % 3.5 %
[2020-02-12 04:24] LABS: BUN/Creatinine Ratio 42.2 (8-20); Calcium 8.3 mg/dL (8.6-10.3); EGFR African American 164.4 (>60); EGFR Non-African American 135.8 (>60); Magnesium 1.9 mg/dL (1.9-2.7); Phosphorus 2.1 mg/dL (2.5-5.0); Potassium 3.9 mmol/L (3.5-5.0)
[2020-02-12] MEDS: Mometasone/Formoter 100/5 MDI INH SCH ×2 (07:58→20:56)
[2020-02-12] MEDS: SPIRIVA Respimat (tiotropium) 2.5 mcg/inh Inhaler INH SCH (07:58)
[2020-02-12] MEDS: Enoxaparin 30 MG/0.3 ML SYR SUBCUT SCH (08:56)
[2020-02-12] MEDS: Cefepime 1 GM in Dextrose 1 GM/50 ML BAG IV SCH ×2 (08:57→21:18)
[2020-02-12] MEDS ORDERED: Lactated Ringers 1000 ml BAG 1,000 ML IV SCH (11:00)
[2020-02-12] MEDS ORDERED: Potassium Phosphate IV 15 MMOLE in NS 0.9% 250 ml 250 ML IVPB ONE (12:00)
[2020-02-12] MEDS ORDERED: Enoxaparin 30 MG/0.3 ML SYR SUBCUT ONE (12:32)
[2020-02-12] MEDS ORDERED: Dextrose 50% Syringe 50 ml 25 GM/50 ML SYRINGE IV PUSH PRN (12:34)
[2020-02-12] MEDS: Anidulafungin 100 MG in NS 0.9% 100 ml BAG 100 ML IVPB SCH (13:54)
[2020-02-12] MEDS ORDERED: Cyanocobalamin INJ 1,000 MCG/ML VIAL 1 ML VIAL IM ONE (14:02)
[2020-02-12] MEDS: TPN 24 HR with D10W 1000 ml BAG 1,000 ML, Amino Acid Infusion 10% 850 ML, Sterile Water... IV SCH (17:57)
[2020-02-12] MEDS: Cholecalciferol (VIT D3) 1,000 unit TAB PO SCH (17:57)
[2020-02-12] MEDS ORDERED: Insulin GLARGINE 100 un/ml 10 ml VIAL SUBCUT SCH (21:00)
[2020-02-12] MEDS: Enoxaparin 60 MG/0.6 ML SYR SUBCUT SCH (21:23)
[2020-02-13 05:43] LABS: Hematocrit 29 % (35-47); Hemoglobin 9.1 g/dL (12.0-16.0); Mean Corpuscular HGB Conc 32 g/dL (31-36); Mean Corpuscular Hemoglobin 25 pg (27-31); Mean Corpuscular Volume 79 fL (80-97); Mean Platelet Volume 8.4 fL (7.4-10.4); Platelet Count 257 10^3/uL (150-450); Red Blood Count 3.64 10^6 /uL (3.70-4.87); Red Cell Distribution Width 19 % (10-15); White Blood Count 12.2 10^3/uL (3.5-10.8)
[2020-02-13 06:01] LABS: BUN/Creatinine Ratio 57.9 (8-20); C Reactive Protein 120.77 mg/L (<8.01); Calcium 8.6 mg/dL (8.6-10.3); EGFR African American 199.8 (>60); EGFR Non-African American 165.1 (>60); Magnesium 1.9 mg/dL (1.9-2.7); Phosphorus 2.7 mg/dL (2.5-5.0); Potassium 4.1 mmol/L (3.5-5.0); Total Bilirubin 0.7 mg/dL (0.2-1.0)
[2020-02-13] MEDS: Cefepime 1 GM in Dextrose 1 GM/50 ML BAG IV SCH ×2 (07:46→19:40)
[2020-02-13] MEDS: Mometasone/Formoter 100/5 MDI INH SCH ×2 (08:30→19:50)
[2020-02-13] MEDS: SPIRIVA Respimat (tiotropium) 2.5 mcg/inh Inhaler INH SCH (08:31)
[2020-02-13] MEDS: Enoxaparin 60 MG/0.6 ML SYR SUBCUT SCH (09:28)
[2020-02-13] MEDS: Cholecalciferol (VIT D3) 1,000 unit TAB PO SCH (09:30)
[2020-02-13] MEDS: Anidulafungin 100 MG in NS 0.9% 100 ml BAG 100 ML IVPB SCH (14:00)
[2020-02-13] MEDS ORDERED: Furosemide 20 mg/2 ml IV VIAL IV ONE (15:16)
[2020-02-13] MEDS ORDERED: Metoprolol Tartrate 5 mg VIAL 5 ml VIAL (1 mg/ml) IV ONE (16:10)
[2020-02-13] MEDS: TPN 24 HR with D10W 1000 ml BAG 1,000 ML, Amino Acid Infusion 10% 850 ML, Sterile Water... IV SCH (18:34)
[2020-02-13] MEDS: Insulin GLARGINE 100 un/ml 10 ml VIAL SUBCUT SCH (20:03)
[2020-02-14 06:36] LABS: Hematocrit 31 % (35-47); Hemoglobin 9.9 g/dL (12.0-16.0); Mean Corpuscular HGB Conc 32 g/dL (31-36); Mean Corpuscular Hemoglobin 25 pg (27-31); Mean Corpuscular Volume 79 fL (80-97); Mean Platelet Volume 8.6 fL (7.4-10.4); Platelet Count 310 10^3/uL (150-450); Red Blood Count 3.92 10^6 /uL (3.70-4.87); Red Cell Distribution Width 21 % (10-15); White Blood Count 14.4 10^3/uL (3.5-10.8)
[2020-02-14 06:52] LABS: BUN/Creatinine Ratio 56.5 (8-20); Calcium 8.8 mg/dL (8.6-10.3); EGFR African American 160.2 (>60); EGFR Non-African American 132.4 (>60); Magnesium 1.9 mg/dL (1.9-2.7); Phosphorus 2.6 mg/dL (2.5-5.0); Potassium 4.1 mmol/L (3.5-5.0)
[2020-02-14] MEDS: Cefepime 1 GM in Dextrose 1 GM/50 ML BAG IV SCH ×2 (07:27→20:00)
[2020-02-14] MEDS: Mometasone/Formoter 100/5 MDI INH SCH ×2 (07:51→19:23)
[2020-02-14] MEDS: SPIRIVA Respimat (tiotropium) 2.5 mcg/inh Inhaler INH SCH (07:51)
[2020-02-14] MEDS: Cholecalciferol (VIT D3) 1,000 unit TAB PO SCH (09:00)
[2020-02-14] MEDS: Anidulafungin 100 MG in NS 0.9% 100 ml BAG 100 ML IVPB SCH (14:03)
[2020-02-14] MEDS: Multivitamins ADULT w/MIN LIQ 15 ML UDC PO SCH (18:21)
[2020-02-14] MEDS: Insulin GLARGINE 100 un/ml 10 ml VIAL SUBCUT SCH (20:02)
[2020-02-15] MEDS: Mometasone/Formoter 100/5 MDI INH SCH ×2 (07:20→19:42)
[2020-02-15] MEDS: SPIRIVA Respimat (tiotropium) 2.5 mcg/inh Inhaler INH SCH (07:20)
[2020-02-15 07:43] LABS: Calcium 8.7 mg/dL (8.6-10.3); Magnesium 1.9 mg/dL (1.9-2.7); Potassium 4.1 mmol/L (3.5-5.0)
[2020-02-15 07:49] LABS: BUN/Creatinine Ratio 55.8 (8-20); C Reactive Protein 47.16 mg/L (<8.01); EGFR African American 173.2 (>60); EGFR Non-African American 143.1 (>60)
[2020-02-15] MEDS: Cefepime 1 GM in Dextrose 1 GM/50 ML BAG IV SCH (07:50)
[2020-02-15] MEDS: Cholecalciferol (VIT D3) 1,000 unit TAB PO SCH (07:54)
[2020-02-15] MEDS: Multivitamins ADULT w/MIN LIQ 15 ML UDC PO SCH (07:54)
[2020-02-15 11:24] LABS: Hematocrit 31 % (35-47); Mean Corpuscular HGB Conc 32 g/dL (31-36); Mean Corpuscular Hemoglobin 25 pg (27-31); Mean Corpuscular Volume 78 fL (80-97); Platelet Count 342 10^3/uL (150-450); Red Blood Count 3.99 10^6 /uL (3.70-4.87); Red Cell Distribution Width 21 % (10-15); White Blood Count 10.2 10^3/uL (3.5-10.8)
[2020-02-15] MEDS: Anidulafungin 100 MG in NS 0.9% 100 ml BAG 100 ML IVPB SCH (13:40)
[2020-02-15] MEDS ORDERED: guaiFENesin 100 mg/5 ml LIQ unit dose cup PO PRN (15:49)
[2020-02-15] MEDS: Insulin GLARGINE 100 un/ml 10 ml VIAL SUBCUT SCH (20:42)
[2020-02-15] MEDS ORDERED: Iron Sucrose 200 MG in NS 0.9% 100 ml BAG 100 ML IVPB ONE (22:04)
[2020-02-16] MEDS: Multivitamins ADULT w/MIN LIQ 15 ML UDC PO SCH (07:57)
[2020-02-16] MEDS: Cholecalciferol (VIT D3) 1,000 unit TAB PO SCH (07:57)
[2020-02-16] MEDS: Iron Sucrose 200 MG in NS 0.9% 100 ml BAG 100 ML IVPB SCH (09:46)
[2020-02-16] MEDS: Mometasone/Formoter 100/5 MDI INH SCH ×2 (10:00→20:27)
[2020-02-16] MEDS: SPIRIVA Respimat (tiotropium) 2.5 mcg/inh Inhaler INH SCH (10:00)
[2020-02-16] MEDS: Insulin GLARGINE 100 un/ml 10 ml VIAL SUBCUT SCH (19:54)
[2020-02-17] MEDS: Mometasone/Formoter 100/5 MDI INH SCH (07:57)
[2020-02-17] MEDS: SPIRIVA Respimat (tiotropium) 2.5 mcg/inh Inhaler INH SCH (07:57)
[2020-02-17] MEDS: Cholecalciferol (VIT D3) 1,000 unit TAB PO SCH (08:35)
[2020-02-17] MEDS: Multivitamins ADULT w/MIN LIQ 15 ML UDC PO SCH (08:35)
[2020-02-17] MEDS: Iron Sucrose 200 MG in NS 0.9% 100 ml BAG 100 ML IVPB SCH (09:26)
[2020-02-17 13:30] VITALS: BP 108/72
== END 2020-02-17 14:00 | DRG 207 ==
LOC: ICU 20:04 → MEDTELE 02-09 08:14
PROVIDERS: ADMIT Student in an Organized Health Care Education/Training Program; ATTEND Student in an Organized Health Care Education/Training Program

== ENCOUNTER 2020-02-17 13:08 | Inpatient (IN) ==
[2020-02-17] MEDS ORDERED: Senna TAB 8.6 mg TAB PO PRN (15:59)
[2020-02-17] MEDS ORDERED: Dextrose 50% Syringe 50 ml 25 GM/50 ML SYRINGE IV PUSH PRN (16:07)
[2020-02-17] MEDS: Insulin GLARGINE 100 un/ml 10 ml VIAL SUBCUT SCH (21:06)
[2020-02-17] MEDS: Mometasone/Formoter 100/5 MDI INH SCH (21:09)
[2020-02-18] MEDS: Cholecalciferol (VIT D3) 1,000 unit TAB PO SCH (10:31)
[2020-02-18] MEDS: SPIRIVA Respimat (tiotropium) 2.5 mcg/inh Inhaler INH SCH ×2 (12:38→13:21)
[2020-02-18] MEDS: Mometasone/Formoter 100/5 MDI INH SCH ×3 (12:39→22:10)
[2020-02-18] MEDS: Insulin GLARGINE 100 un/ml 10 ml VIAL SUBCUT SCH (20:31)
[2020-02-19 05:21] LABS: ABS Basophils 0.1 10^3/ul (0-0.2); ABS Eosinophils 0.5 10^3/ul (0-0.6); ABS Lymphocytes 0.8 10^3/ul (1.0-4.8); ABS Monocytes 0.8 10^3/ul (0-0.8); ABS Neutrophils 6.7 10^3/ul (1.5-7.7); Eosinophil % 5.8 %; Hematocrit 30 % (35-47); Hemoglobin 9.4 g/dL (12.0-16.0); Lymphocyte % 9.3 %; Mean Corpuscular HGB Conc 31 g/dL (31-36); Mean Corpuscular Hemoglobin 25 pg (27-31); Mean Corpuscular Volume 79 fL (80-97); Mean Platelet Volume 7.7 fL (7.4-10.4); Platelet Count 430 10^3/uL (150-450); Red Cell Distribution Width 20 % (10-15)
[2020-02-19 05:32] LABS: Albumin/Globulin Ratio 1.1 (1-3); BUN/Creatinine Ratio 42.6 (8-20); Calcium 8.9 mg/dL (8.6-10.3); EGFR African American 156.3 (>60); EGFR Non-African American 129.2 (>60); Globulin 2.8 g/dL (2-4); Potassium 3.8 mmol/L (3.5-5.0); Total Bilirubin 0.5 mg/dL (0.2-1.0); Total Protein 5.8 g/dL (6.4-8.9)
[2020-02-19] MEDS: Mometasone/Formoter 100/5 MDI INH SCH ×2 (10:11→19:56)
[2020-02-19] MEDS: SPIRIVA Respimat (tiotropium) 2.5 mcg/inh Inhaler INH SCH (10:11)
[2020-02-19] MEDS: Cholecalciferol (VIT D3) 1,000 unit TAB PO SCH (10:23)
[2020-02-19] MEDS: Insulin GLARGINE 100 un/ml 10 ml VIAL SUBCUT SCH (20:20)
[2020-02-20] MEDS: Cholecalciferol (VIT D3) 1,000 unit TAB PO SCH (09:46)
[2020-02-20] MEDS: SPIRIVA Respimat (tiotropium) 2.5 mcg/inh Inhaler INH SCH (09:54)
[2020-02-20] MEDS: Mometasone/Formoter 100/5 MDI INH SCH ×2 (09:54→21:02)
[2020-02-20] MEDS: Insulin GLARGINE 100 un/ml 10 ml VIAL SUBCUT SCH (21:04)
[2020-02-21] MEDS: Mometasone/Formoter 100/5 MDI INH SCH ×2 (08:35→21:23)
[2020-02-21] MEDS: SPIRIVA Respimat (tiotropium) 2.5 mcg/inh Inhaler INH SCH (08:37)
[2020-02-21] MEDS: Cholecalciferol (VIT D3) 1,000 unit TAB PO SCH (08:40)
[2020-02-21] MEDS: Insulin GLARGINE 100 un/ml 10 ml VIAL SUBCUT SCH (21:26)
[2020-02-22] MEDS: Cholecalciferol (VIT D3) 1,000 unit TAB PO SCH (08:22)
[2020-02-22] MEDS: SPIRIVA Respimat (tiotropium) 2.5 mcg/inh Inhaler INH SCH (08:29)
[2020-02-22] MEDS: Mometasone/Formoter 100/5 MDI INH SCH ×2 (08:30→21:59)
[2020-02-22] MEDS: Insulin GLARGINE 100 un/ml 10 ml VIAL SUBCUT SCH (20:57)
[2020-02-23] MEDS: SPIRIVA Respimat (tiotropium) 2.5 mcg/inh Inhaler INH SCH (08:18)
[2020-02-23] MEDS: Mometasone/Formoter 100/5 MDI INH SCH ×2 (08:18→21:13)
[2020-02-23] MEDS: Cholecalciferol (VIT D3) 1,000 unit TAB PO SCH (08:18)
[2020-02-23] MEDS: Magnesium Hydroxide LIQ 30 ML UDC PO PRN (08:21)
[2020-02-23] MEDS: Insulin GLARGINE 100 un/ml 10 ml VIAL SUBCUT SCH (21:12)
[2020-02-24] MEDS: Cholecalciferol (VIT D3) 1,000 unit TAB PO SCH (08:40)
[2020-02-24] MEDS: Mometasone/Formoter 100/5 MDI INH SCH ×2 (10:45→20:35)
[2020-02-24] MEDS: SPIRIVA Respimat (tiotropium) 2.5 mcg/inh Inhaler INH SCH (10:45)
[2020-02-24] MEDS: Insulin GLARGINE 100 un/ml 10 ml VIAL SUBCUT SCH (20:36)
[2020-02-25] MEDS: Cholecalciferol (VIT D3) 1,000 unit TAB PO SCH (09:12)
[2020-02-25] MEDS: SPIRIVA Respimat (tiotropium) 2.5 mcg/inh Inhaler INH SCH (09:26)
[2020-02-25] MEDS: Mometasone/Formoter 100/5 MDI INH SCH ×2 (09:27→21:11)
[2020-02-25] MEDS: Magnesium Hydroxide LIQ 30 ML UDC PO PRN (16:56)
[2020-02-25] MEDS: Insulin GLARGINE 100 un/ml 10 ml VIAL SUBCUT SCH (21:10)
[2020-02-26 05:07] LABS: Albumin 3.2 g/dL (3.2-5.2); Albumin/Globulin Ratio 1.2 (1-3); Calcium 9.4 mg/dL (8.6-10.3); EGFR African American 145.5 (>60); EGFR Non-African American 120.3 (>60); Globulin 2.7 g/dL (2-4); Potassium 4.5 mmol/L (3.5-5.0); Total Bilirubin 0.4 mg/dL (0.2-1.0); Total Protein 5.9 g/dL (6.4-8.9)
[2020-02-26 05:09] LABS: Hematocrit 30 % (35-47); Hemoglobin 9.6 g/dL (12.0-16.0); Mean Corpuscular HGB Conc 33 g/dL (31-36); Mean Corpuscular Hemoglobin 26 pg (27-31); Mean Corpuscular Volume 81 fL (80-97); Platelet Count 413 10^3/uL (150-450); Red Blood Count 3.66 10^6 /uL (3.70-4.87); Red Cell Distribution Width 23 % (10-15); White Blood Count 6.5 10^3/uL (3.5-10.8)
[2020-02-26 05:27] LABS: Microcytosis 1+
[2020-02-26 07:14] LABS: ABS Basophils 0.1 10^3/ul (0-0.2); ABS Eosinophils 0.5 10^3/ul (0-0.6); ABS Lymphocytes 1.1 10^3/ul (1.0-4.8); ABS Monocytes 0.9 10^3/ul (0-0.8); ABS Neutrophils 3.9 10^3/ul (1.5-7.7); Eosinophil % 7.5 %; Lymphocyte % 17.4 %
[2020-02-26] MEDS: SPIRIVA Respimat (tiotropium) 2.5 mcg/inh Inhaler INH SCH (08:34)
[2020-02-26] MEDS: Mometasone/Formoter 100/5 MDI INH SCH ×2 (08:35→20:22)
[2020-02-26] MEDS: Cholecalciferol (VIT D3) 1,000 unit TAB PO SCH (09:03)
[2020-02-26] MEDS: Insulin GLARGINE 100 un/ml 10 ml VIAL SUBCUT SCH (20:23)
[2020-02-27] MEDS: Cholecalciferol (VIT D3) 1,000 unit TAB PO SCH (08:57)
[2020-02-27] MEDS: Mometasone/Formoter 100/5 MDI INH SCH ×2 (11:52→22:08)
[2020-02-27] MEDS: SPIRIVA Respimat (tiotropium) 2.5 mcg/inh Inhaler INH SCH (11:53)
[2020-02-27] MEDS: Insulin GLARGINE 100 un/ml 10 ml VIAL SUBCUT SCH (22:05)
[2020-02-28] MEDS: Cholecalciferol (VIT D3) 1,000 unit TAB PO SCH (10:13)
[2020-02-28] MEDS: Mometasone/Formoter 100/5 MDI INH SCH ×2 (10:47→21:19)
[2020-02-28] MEDS: SPIRIVA Respimat (tiotropium) 2.5 mcg/inh Inhaler INH SCH (10:47)
[2020-02-28] MEDS: Insulin GLARGINE 100 un/ml 10 ml VIAL SUBCUT SCH (21:18)
[2020-02-29] MEDS: SPIRIVA Respimat (tiotropium) 2.5 mcg/inh Inhaler INH SCH (08:52)
[2020-02-29] MEDS: Mometasone/Formoter 100/5 MDI INH SCH ×2 (08:53→22:09)
[2020-02-29] MEDS: Cholecalciferol (VIT D3) 1,000 unit TAB PO SCH (10:07)
[2020-02-29] MEDS: Insulin GLARGINE 100 un/ml 10 ml VIAL SUBCUT SCH (21:09)
[2020-03-01] MEDS: Cholecalciferol (VIT D3) 1,000 unit TAB PO SCH (08:25)
[2020-03-01] MEDS: Mometasone/Formoter 100/5 MDI INH SCH ×2 (08:29→21:37)
[2020-03-01] MEDS: SPIRIVA Respimat (tiotropium) 2.5 mcg/inh Inhaler INH SCH (08:31)
[2020-03-01] MEDS: Insulin GLARGINE 100 un/ml 10 ml VIAL SUBCUT SCH (21:33)
[2020-03-02] MEDS: Cholecalciferol (VIT D3) 1,000 unit TAB PO SCH (07:43)
[2020-03-02] MEDS: Mometasone/Formoter 100/5 MDI INH SCH ×2 (07:45→21:12)
[2020-03-02] MEDS: SPIRIVA Respimat (tiotropium) 2.5 mcg/inh Inhaler INH SCH (07:46)
[2020-03-02] MEDS: Insulin GLARGINE 100 un/ml 10 ml VIAL SUBCUT SCH (21:15)
[2020-03-03] MEDS: Cholecalciferol (VIT D3) 1,000 unit TAB PO SCH (08:41)
[2020-03-03] MEDS: Mometasone/Formoter 100/5 MDI INH SCH ×2 (08:42→21:55)
[2020-03-03] MEDS: SPIRIVA Respimat (tiotropium) 2.5 mcg/inh Inhaler INH SCH (08:43)
[2020-03-03] MEDS: Magnesium Hydroxide LIQ 30 ML UDC PO PRN (13:20)
[2020-03-03] MEDS: Insulin GLARGINE 100 un/ml 10 ml VIAL SUBCUT SCH (21:54)
[2020-03-04 06:16] LABS: Albumin 3.5 g/dL (3.2-5.2); Albumin/Globulin Ratio 1.3 (1-3); BUN/Creatinine Ratio 32.1 (8-20); Calcium 9.5 mg/dL (8.6-10.3); EGFR African American 127.7 (>60); EGFR Non-African American 105.5 (>60); Globulin 2.7 g/dL (2-4); Potassium 4.4 mmol/L (3.5-5.0); Total Bilirubin 0.3 mg/dL (0.2-1.0); Total Protein 6.2 g/dL (6.4-8.9)
[2020-03-04 06:31] VITALS: BP 132/44
[2020-03-04] MEDS: Cholecalciferol (VIT D3) 1,000 unit TAB PO SCH (07:27)
[2020-03-04] MEDS: Mometasone/Formoter 100/5 MDI INH SCH (07:30)
[2020-03-04] MEDS: SPIRIVA Respimat (tiotropium) 2.5 mcg/inh Inhaler INH SCH (07:32)
[2020-03-04 08:24] LABS: ABS Basophils 0.1 10^3/ul (0-0.2); ABS Eosinophils 0.3 10^3/ul (0-0.6); ABS Lymphocytes 1.3 10^3/ul (1.0-4.8); ABS Monocytes 0.8 10^3/ul (0-0.8); ABS Neutrophils 3.8 10^3/ul (1.5-7.7); Eosinophil % 4.2 %; Hematocrit 31 % (35-47); Hemoglobin 10.3 g/dL (12.0-16.0); Lymphocyte % 20.4 %; Mean Corpuscular HGB Conc 33 g/dL (31-36); Mean Corpuscular Hemoglobin 27 pg (27-31); Mean Corpuscular Volume 82 fL (80-97); Platelet Count 331 10^3/uL (150-450); Red Blood Count 3.85 10^6 /uL (3.70-4.87); Red Cell Distribution Width 23 % (10-15); White Blood Count 6.3 10^3/uL (3.5-10.8)
== END 2020-03-04 13:00 | disposition home health service (06) | DRG 91 ==
LOC: PMRU 15:33
PROVIDERS: ADMIT Physical Medicine & Rehabilitation; ATTEND Physical Medicine & Rehabilitation

== ENCOUNTER 2020-04-05 12:59 | Inpatient (IN) ==
[2020-04-05 13:40] LABS: ABS Basophils 0.1 10^3/ul (0-0.2); ABS Eosinophils 0.2 10^3/ul (0-0.6); ABS Lymphocytes 0.6 10^3/ul (1.0-4.8); ABS Monocytes 0.9 10^3/ul (0-0.8); ABS Neutrophils 10.7 10^3/ul (1.5-7.7); Eosinophil % 1.8 %; Hematocrit 34 % (35-47); Hemoglobin 10.9 g/dL (12.0-16.0); Lymphocyte % 4.9 %; Mean Corpuscular HGB Conc 32 g/dL (31-36); Mean Corpuscular Hemoglobin 27 pg (27-31); Mean Corpuscular Volume 84 fL (80-97); Mean Platelet Volume 7.7 fL (7.4-10.4); Nucleated Red Blood Cells % 0.1; Platelet Count 351 10^3/uL (150-450); Red Blood Count 4.02 10^6 /uL (3.70-4.87); Red Cell Distribution Width 20 % (10-15); White Blood Count 12.6 10^3/uL (3.5-10.8)
[2020-04-05 13:51] LABS: Activated Partial Thrombo Time 36.3 seconds (26.0-38.0); INR 1.69 (0.82-1.09)
[2020-04-05 14:05] LABS: Albumin 4.1 g/dL (3.2-5.2); Albumin/Globulin Ratio 1.4 (1-3); BUN/Creatinine Ratio 12.5 (8-20); C Reactive Protein 4.02 mg/L (<8.01); Calcium 9.4 mg/dL (8.6-10.3); EGFR African American 109.2 (>60); EGFR Non-African American 90.2 (>60); Potassium 3.4 mmol/L (3.5-5.0); Total Bilirubin 0.5 mg/dL (0.2-1.0); Total Protein 7.1 g/dL (6.4-8.9)
[2020-04-05] MEDS ORDERED: Iohexol 300 (CONTRAST) 10 ML SDV IV ONE (14:11)
[2020-04-05 14:36] LABS: Urine Appearance Clear; Urine Bilirubin Negative (Negative); Urine Blood Negative (Negative); Urine Color Colorless; Urine Glucose 3+(>=500 mg/dL) (Negative); Urine Ketones Negative (Negative); Urine Nitrite Negative (Negative); Urine Protein Negative (Negative); Urine Specific Gravity 1.003 (1.010-1.030); Urine Urobilinogen Negative (Negative)
[2020-04-05] MEDS ORDERED: NS 0.9% 1000 ml BAG 1,000 ML IV ONE (15:31)
[2020-04-05 17:24] LABS: Troponin I 0.01 ng/mL (<0.03)
[2020-04-05] MEDS ORDERED: Dextrose 50% Syringe 50 ml 25 GM/50 ML SYRINGE IV PUSH PRN (17:41)
[2020-04-05] MEDS ORDERED: HYDROcodone/ACETAMIN 5/325 mg TAB PO PRN (17:46)
[2020-04-05] MEDS ORDERED: HYDROmorphone 0.5 MG/0.5 ML SYRINGE IV SLOW PU PRN (17:46)
[2020-04-05] MEDS ORDERED: Albuterol 2.5mg/3 ml (0.083%) NEB.SOLN INH PRN (17:46)
[2020-04-05] MEDS ORDERED: Potassium Chlor 20 meq TAB.ER PO ONE (17:54)
[2020-04-05] MEDS ORDERED: Magnesium Hydroxide LIQ 30 ML UDC PO PRN (19:15)
[2020-04-05] MEDS ORDERED: Albuterol HFA INHALER 8 gm MDI INH PRN (20:19)
[2020-04-05] MEDS ORDERED: Enoxaparin 40 MG/0.4 ML SYR SUBCUT SCH (21:00)
[2020-04-05] MEDS: Senna TAB 8.6 mg TAB PO PRN (21:51)
[2020-04-05] MEDS: NS 0.9% 1000 ml BAG 1,000 ML IV SCH (21:52)
[2020-04-06] MEDS: SPIRIVA Respimat (tiotropium) 2.5 mcg/inh Inhaler INH SCH (07:47)
[2020-04-06 08:00] LABS: BUN/Creatinine Ratio 13.6 (8-20); Calcium 8.8 mg/dL (8.6-10.3); EGFR African American 119.9 (>60); EGFR Non-African American 99.1 (>60); Potassium 3.6 mmol/L (3.5-5.0)
[2020-04-06] MEDS: NS 0.9% 1000 ml BAG 1,000 ML IV SCH (08:05)
[2020-04-06 08:09] LABS: ABS Basophils 0.1 10^3/ul (0-0.2); ABS Eosinophils 0.1 10^3/ul (0-0.6); ABS Lymphocytes 0.7 10^3/ul (1.0-4.8); ABS Monocytes 1.1 10^3/ul (0-0.8); ABS Neutrophils 5.9 10^3/ul (1.5-7.7); Eosinophil % 1.5 %; Hematocrit 27 % (35-47); Hemoglobin 8.9 g/dL (12.0-16.0); Lymphocyte % 9.3 %; Mean Corpuscular HGB Conc 33 g/dL (31-36); Mean Corpuscular Hemoglobin 28 pg (27-31); Mean Corpuscular Volume 85 fL (80-97); Mean Platelet Volume 7.9 fL (7.4-10.4); Platelet Count 262 10^3/uL (150-450); Red Blood Count 3.21 10^6 /uL (3.70-4.87); Red Cell Distribution Width 20 % (10-15)
[2020-04-06 08:44] LABS: Vitamin D Total 25(OH) 27.5 ng/mL (20-50)
[2020-04-06] MEDS ORDERED: Insulin GLARGINE 100 un/ml 10 ml VIAL SUBCUT SCH (09:00)
[2020-04-06] MEDS: Isosorbide Mononit ER 60mg TAB PO SCH (09:41)
[2020-04-06] MEDS: Enoxaparin 60 MG/0.6 ML SYR SUBCUT SCH ×2 (12:34→21:59)
[2020-04-06 16:22] LABS: ABS Basophils 0.1 10^3/ul (0-0.2); ABS Eosinophils 0.3 10^3/ul (0-0.6); ABS Monocytes 1.3 10^3/ul (0-0.8); ABS Neutrophils 5.8 10^3/ul (1.5-7.7); Eosinophil % 3.7 %; Hematocrit 26 % (35-47); Hemoglobin 8.5 g/dL (12.0-16.0); Lymphocyte % 11.4 %; Mean Corpuscular HGB Conc 33 g/dL (31-36); Mean Corpuscular Hemoglobin 28 pg (27-31); Mean Corpuscular Volume 85 fL (80-97); Mean Platelet Volume 7.9 fL (7.4-10.4); Platelet Count 247 10^3/uL (150-450); Red Blood Count 3.01 10^6 /uL (3.70-4.87); Red Cell Distribution Width 19 % (10-15); White Blood Count 8.5 10^3/uL (3.5-10.8)
[2020-04-06] MEDS: Mometasone 220 MCG MDI INH SCH (21:37)
[2020-04-07 05:43] LABS: Hematocrit 26 % (35-47); Hemoglobin 8.5 g/dL (12.0-16.0); Mean Corpuscular HGB Conc 33 g/dL (31-36); Mean Corpuscular Hemoglobin 28 pg (27-31); Mean Corpuscular Volume 85 fL (80-97); Mean Platelet Volume 7.6 fL (7.4-10.4); Platelet Count 234 10^3/uL (150-450); Red Blood Count 3.03 10^6 /uL (3.70-4.87); Red Cell Distribution Width 19 % (10-15); White Blood Count 9.5 10^3/uL (3.5-10.8)
[2020-04-07 05:59] LABS: ABS Eosinophils 0.5 10^3/ul (0-0.6); ABS Monocytes 1.4 10^3/ul (0-0.8); ABS Neutrophils 6.5 10^3/ul (1.5-7.7); BUN/Creatinine Ratio 13.7 (8-20); Calcium 8.7 mg/dL (8.6-10.3); EGFR African American 141.9 (>60); EGFR Non-African American 117.2 (>60); Eosinophil % 5.6 %; Lymphocyte % 10.4 %; Potassium 3.6 mmol/L (3.5-5.0)
[2020-04-07] MEDS: SPIRIVA Respimat (tiotropium) 2.5 mcg/inh Inhaler INH SCH (07:49)
[2020-04-07] MEDS: Insulin GLARGINE 100 un/ml 10 ml VIAL SUBCUT SCH (08:52)
[2020-04-07] MEDS: Isosorbide Mononit ER 60mg TAB PO SCH (08:53)
[2020-04-07] MEDS: Enoxaparin 60 MG/0.6 ML SYR SUBCUT SCH (12:10)
[2020-04-07 16:28] LABS: Activated Partial Thrombo Time 31.6 seconds (26.0-38.0); INR 1.21 (0.82-1.09)
[2020-04-07] MEDS: Mometasone 220 MCG MDI INH SCH (19:55)
[2020-04-08 05:47] LABS: ABS Eosinophils 0.5 10^3/ul (0-0.6); ABS Lymphocytes 0.9 10^3/ul (1.0-4.8); ABS Monocytes 1.2 10^3/ul (0-0.8); Eosinophil % 5.4 %; Hematocrit 25 % (35-47); Hemoglobin 8.6 g/dL (12.0-16.0); Lymphocyte % 9.5 %; Mean Corpuscular HGB Conc 34 g/dL (31-36); Mean Corpuscular Hemoglobin 29 pg (27-31); Mean Corpuscular Volume 84 fL (80-97); Mean Platelet Volume 7.7 fL (7.4-10.4); Platelet Count 254 10^3/uL (150-450); Red Blood Count 3.02 10^6 /uL (3.70-4.87); Red Cell Distribution Width 19 % (10-15); White Blood Count 9.6 10^3/uL (3.5-10.8)
[2020-04-08 06:03] LABS: Activated Partial Thrombo Time 29.9 seconds (26.0-38.0); BUN/Creatinine Ratio 15.2 (8-20); Calcium 8.6 mg/dL (8.6-10.3); EGFR African American 159.8 (>60); EGFR Non-African American 132.1 (>60); INR 1.16 (0.82-1.09); Potassium 3.7 mmol/L (3.5-5.0)
[2020-04-08] MEDS: SPIRIVA Respimat (tiotropium) 2.5 mcg/inh Inhaler INH SCH (07:45)
[2020-04-08] MEDS: Insulin GLARGINE 100 un/ml 10 ml VIAL SUBCUT SCH (09:15)
[2020-04-08] MEDS ORDERED: Propofol 10 MG/ML 20 ML BTL ONE (12:26)
[2020-04-08] MEDS ORDERED: fentaNYL 250 mcg/5 ml 50 MCG/ML 5 ml VIAL (250 MCG) ONE (12:26)
[2020-04-08] MEDS ORDERED: Ondansetron 4 mg VIAL 2 MG/ML 2 ml VIAL ONE (12:26)
[2020-04-08] MEDS ORDERED: Dexamethasone IV 4 MG/ML VIAL 1 ml VIAL ONE (12:26)
[2020-04-08] MEDS ORDERED: Lidocaine 2% PF 5 ML VIAL ONE (12:26)
[2020-04-08] MEDS ORDERED: Rocuronium 50 mg VIAL 10 mg/ml 5 ml VIAL (50 mg) ONE (12:26)
[2020-04-08] MEDS ORDERED: Midazolam 2 mg/2 ml VIAL 1 mg/ml 2 ml VIAL (2 mg) ONE (12:26)
[2020-04-08] MEDS ORDERED: Norepinephrine 16MCG/ML IVPRE 4,000 MCG/250 ML BAG IV ONE (12:39)
[2020-04-08] MEDS ORDERED: Phenylephrine IV 10 MG/ML 1 ml VIAL ONE (13:43)
[2020-04-08] MEDS ORDERED: Bacitracin INJECTION 50,000 UNITS ONE (14:21)
[2020-04-08] MEDS ORDERED: Lidocaine 1% w EPI 1:200,000 SDV 30 ML VIAL ONE (14:27)
[2020-04-08] MEDS ORDERED: Bupivacaine 0.5% SDV PF 30ML VIAL ONE (14:27)
[2020-04-08] MEDS ORDERED: ceFAZolin 2 GM PREMIX 2 GM/50 ML BAG ONE (14:45)
[2020-04-08] MEDS ORDERED: Albumin Human 5% 12.5 GM/250 ML BTL IV ONE (15:00)
[2020-04-08] MEDS ORDERED: EPHEDrine (Pressors) 50 MG/ML VIAL ONE (17:54)
[2020-04-08] MEDS ORDERED: Acetaminophen IV 1 GM/100ML 100 ML ONE (17:54)
[2020-04-08] MEDS ORDERED: fentaNYL 100 mcg/2 ml 50 MCG/ML VIAL IV PRN (19:03)
[2020-04-08] MEDS ORDERED: Naloxone 0.4 mg VIAL 0.4 mg/ml 1 ml VIAL IV PRN (19:03)
[2020-04-08] MEDS: Mometasone 220 MCG MDI INH SCH (22:48)
[2020-04-09] MEDS ORDERED: Lorazepam PYXIS KEY PRN (01:24)
[2020-04-09] MEDS ORDERED: LORazepam 2 mg VIAL 1 ml IV PUSH ONE (01:24)
[2020-04-09] MEDS ORDERED: Lorazepam PYXIS KEY ONE (01:36)
[2020-04-09] MEDS ORDERED: LORazepam 2 mg VIAL 1 ml ONE (01:37)
[2020-04-09 04:32] LABS: ABS Lymphocytes 0.5 10^3/ul (1.0-4.8); ABS Monocytes 1.2 10^3/ul (0-0.8); Hematocrit 30 % (35-47); Lymphocyte % 4.3 %; Mean Corpuscular HGB Conc 33 g/dL (31-36); Mean Corpuscular Hemoglobin 28 pg (27-31); Mean Corpuscular Volume 85 fL (80-97); Mean Platelet Volume 7.7 fL (7.4-10.4); Platelet Count 242 10^3/uL (150-450); Red Blood Count 3.54 10^6 /uL (3.70-4.87); Red Cell Distribution Width 19 % (10-15); White Blood Count 10.6 10^3/uL (3.5-10.8)
[2020-04-09 04:55] LABS: Calcium 8.5 mg/dL (8.6-10.3)
[2020-04-09 04:56] LABS: BUN/Creatinine Ratio 21.1 (8-20); EGFR African American 124.8 (>60); EGFR Non-African American 103.1 (>60)
[2020-04-09] MEDS: SPIRIVA Respimat (tiotropium) 2.5 mcg/inh Inhaler INH SCH (07:47)
[2020-04-09] MEDS: Insulin GLARGINE 100 un/ml 10 ml VIAL SUBCUT SCH (08:02)
[2020-04-09] MEDS ORDERED: Polyethylene Glycol 3350 17 GM PACKET PO PRN (13:17)
[2020-04-09] MEDS ORDERED: ceFAZolin 2 GM in NS PREMIX 2 GM/100 ML BAG IVPB SCH ×2 (14:00→22:00)
[2020-04-09] MEDS: Senna TAB 8.6 mg TAB PO PRN ×2 (16:20→21:43)
[2020-04-09] MEDS: Mometasone 220 MCG MDI INH SCH (17:37)
[2020-04-09 22:06] LABS: Glucose Confirmatory 403 mg/dL (70-100)
[2020-04-10] MEDS: ceFAZolin 2 GM in NS PREMIX 2 GM/100 ML BAG IVPB SCH ×3 (01:03→16:32)
[2020-04-10 06:25] LABS: ABS Basophils 0.1 10^3/ul (0-0.2); ABS Eosinophils 0.5 10^3/ul (0-0.6); ABS Lymphocytes 0.8 10^3/ul (1.0-4.8); ABS Monocytes 1.3 10^3/ul (0-0.8); ABS Neutrophils 6.5 10^3/ul (1.5-7.7); Eosinophil % 5.4 %; Hematocrit 29 % (35-47); Hemoglobin 9.3 g/dL (12.0-16.0); Lymphocyte % 8.3 %; Mean Corpuscular HGB Conc 32 g/dL (31-36); Mean Corpuscular Hemoglobin 28 pg (27-31); Mean Corpuscular Volume 86 fL (80-97); Mean Platelet Volume 7.9 fL (7.4-10.4); Platelet Count 225 10^3/uL (150-450); Red Blood Count 3.32 10^6 /uL (3.70-4.87); Red Cell Distribution Width 18 % (10-15); White Blood Count 9.1 10^3/uL (3.5-10.8)
[2020-04-10 06:35] LABS: Calcium 8.6 mg/dL (8.6-10.3); Potassium 4.1 mmol/L (3.5-5.0)
[2020-04-10 06:41] LABS: BUN/Creatinine Ratio 21.8 (8-20); EGFR Non-African American 107.5 (>60)
[2020-04-10] MEDS ORDERED: Insulin GLARGINE 100 un/ml 10 ml VIAL SUBCUT SCH (09:00)
[2020-04-10] MEDS: Insulin GLARGINE 100 un/ml 10 ml VIAL SUBCUT SCH (09:25)
[2020-04-10] MEDS: SPIRIVA Respimat (tiotropium) 2.5 mcg/inh Inhaler INH SCH (09:29)
[2020-04-10] MEDS: Mometasone 220 MCG MDI INH SCH (18:05)
[2020-04-11] MEDS: ceFAZolin 2 GM in NS PREMIX 2 GM/100 ML BAG IVPB SCH ×2 (00:10→07:30)
[2020-04-11 05:14] LABS: ABS Basophils 0.1 10^3/ul (0-0.2); ABS Eosinophils 0.4 10^3/ul (0-0.6); ABS Lymphocytes 0.8 10^3/ul (1.0-4.8); ABS Monocytes 1.2 10^3/ul (0-0.8); ABS Neutrophils 6.6 10^3/ul (1.5-7.7); Eosinophil % 4.7 %; Hematocrit 27 % (35-47); Hemoglobin 8.9 g/dL (12.0-16.0); Lymphocyte % 8.5 %; Mean Corpuscular HGB Conc 33 g/dL (31-36); Mean Corpuscular Hemoglobin 28 pg (27-31); Mean Corpuscular Volume 86 fL (80-97); Mean Platelet Volume 7.8 fL (7.4-10.4); Platelet Count 245 10^3/uL (150-450); Red Blood Count 3.14 10^6 /uL (3.70-4.87); Red Cell Distribution Width 18 % (10-15); White Blood Count 9.1 10^3/uL (3.5-10.8)
[2020-04-11 05:32] LABS: BUN/Creatinine Ratio 18.4 (8-20); Calcium 8.5 mg/dL (8.6-10.3); EGFR African American 148.6 (>60); EGFR Non-African American 122.8 (>60)
[2020-04-11] MEDS: SPIRIVA Respimat (tiotropium) 2.5 mcg/inh Inhaler INH SCH (07:29)
[2020-04-11] MEDS: Insulin GLARGINE 100 un/ml 10 ml VIAL SUBCUT SCH (08:02)
[2020-04-11] MEDS: Isosorbide Mononit ER 60mg TAB PO SCH (12:13)
[2020-04-11] MEDS: Mometasone 220 MCG MDI INH SCH (18:59)
[2020-04-12 05:46] LABS: Hematocrit 25 % (35-47); Hemoglobin 8.4 g/dL (12.0-16.0); Mean Corpuscular HGB Conc 34 g/dL (31-36); Mean Corpuscular Hemoglobin 29 pg (27-31); Mean Corpuscular Volume 85 fL (80-97); Mean Platelet Volume 7.4 fL (7.4-10.4); Platelet Count 292 10^3/uL (150-450); Red Cell Distribution Width 18 % (10-15); White Blood Count 8.3 10^3/uL (3.5-10.8)
[2020-04-12 06:02] LABS: BUN/Creatinine Ratio 20.4 (8-20); Calcium 8.7 mg/dL (8.6-10.3); EGFR African American 132.8 (>60); EGFR Non-African American 109.8 (>60); Potassium 4.1 mmol/L (3.5-5.0)
[2020-04-12] MEDS: Isosorbide Mononit ER 60mg TAB PO SCH (09:16)
[2020-04-12] MEDS: Insulin GLARGINE 100 un/ml 10 ml VIAL SUBCUT SCH (09:17)
[2020-04-12] MEDS: SPIRIVA Respimat (tiotropium) 2.5 mcg/inh Inhaler INH SCH (09:18)
[2020-04-12] MEDS: Mometasone 220 MCG MDI INH SCH (19:21)
[2020-04-13 05:13] LABS: Hematocrit 25 % (35-47); Hemoglobin 8.2 g/dL (12.0-16.0); Mean Corpuscular HGB Conc 33 g/dL (31-36); Mean Corpuscular Hemoglobin 29 pg (27-31); Mean Corpuscular Volume 85 fL (80-97); Mean Platelet Volume 7.2 fL (7.4-10.4); Platelet Count 311 10^3/uL (150-450); Red Blood Count 2.89 10^6 /uL (3.70-4.87); Red Cell Distribution Width 18 % (10-15); White Blood Count 7.4 10^3/uL (3.5-10.8)
[2020-04-13] MEDS: Isosorbide Mononit ER 60mg TAB PO SCH (09:24)
[2020-04-13] MEDS: Insulin GLARGINE 100 un/ml 10 ml VIAL SUBCUT SCH (09:25)
[2020-04-13] MEDS: SPIRIVA Respimat (tiotropium) 2.5 mcg/inh Inhaler INH SCH (09:26)
[2020-04-14] MEDS: Mometasone 220 MCG MDI INH SCH (00:08)
[2020-04-14 06:47] LABS: ABS Basophils 0.1 10^3/ul (0-0.2); ABS Eosinophils 0.4 10^3/ul (0-0.6); ABS Neutrophils 4.4 10^3/ul (1.5-7.7); Eosinophil % 5.7 %; Hematocrit 26 % (35-47); Hemoglobin 8.8 g/dL (12.0-16.0); Lymphocyte % 14.6 %; Mean Corpuscular HGB Conc 33 g/dL (31-36); Mean Corpuscular Hemoglobin 29 pg (27-31); Mean Corpuscular Volume 86 fL (80-97); Mean Platelet Volume 7.2 fL (7.4-10.4); Platelet Count 346 10^3/uL (150-450); Red Blood Count 3.06 10^6 /uL (3.70-4.87); Red Cell Distribution Width 18 % (10-15); White Blood Count 6.9 10^3/uL (3.5-10.8)
[2020-04-14] MEDS: Isosorbide Mononit ER 60mg TAB PO SCH (07:58)
[2020-04-14] MEDS: Insulin GLARGINE 100 un/ml 10 ml VIAL SUBCUT SCH (09:24)
[2020-04-14 09:31] LABS: BUN/Creatinine Ratio 17.3 (8-20); Calcium 9.2 mg/dL (8.6-10.3); EGFR African American 138.7 (>60); EGFR Non-African American 114.6 (>60); Potassium 3.8 mmol/L (3.5-5.0)
[2020-04-14] MEDS: SPIRIVA Respimat (tiotropium) 2.5 mcg/inh Inhaler INH SCH (09:58)
[2020-04-14 16:07] VITALS: BP 111/43
== END 2020-04-14 16:02 | disposition swing bed (61) | DRG 483 ==
LOC: ED 12:59 → MEDTELE 17:18 → SSU 04-08 03:00 → ICU 04-08 19:45 → SSU 04-09 14:26 → MED 04-13 19:17
PROVIDERS: ADMIT Internal Medicine; ATTEND Internal Medicine

== ENCOUNTER 2020-04-14 16:22 | Inpatient (IN) ==
[2020-04-14] MEDS ORDERED: Albuterol 2.5mg/3 ml (0.083%) NEB.SOLN INH PRN (16:35)
[2020-04-14] MEDS ORDERED: Albuterol HFA INHALER 8 gm MDI INH PRN (16:35)
[2020-04-14] MEDS ORDERED: Dextrose 50% Syringe 50 ml 25 GM/50 ML SYRINGE IV PUSH PRN ×2 (16:35)
[2020-04-14] MEDS ORDERED: Senna TAB 8.6 mg TAB PO PRN (16:35)
[2020-04-14] MEDS ORDERED: Magnesium Hydroxide LIQ 30 ML UDC PO PRN (16:35)
[2020-04-14] MEDS ORDERED: Simvastatin 20 mg TAB (NF) PO SCH (18:00)
[2020-04-14] MEDS: Mometasone 220 MCG MDI INH SCH (19:11)
[2020-04-14] MEDS: CMCS:Simvastatin 20 mg TAB (NF) PO SCH (21:26)
[2020-04-15] MEDS: Cholecalciferol (VIT D3) 1,000 unit TAB PO SCH (07:53)
[2020-04-15] MEDS: Isosorbide Mononit ER 60mg TAB PO SCH (07:53)
[2020-04-15] MEDS: SPIRIVA Respimat (tiotropium) 2.5 mcg/inh Inhaler INH SCH (08:31)
[2020-04-15] MEDS: Insulin GLARGINE 100 un/ml 10 ml VIAL SUBCUT SCH (09:46)
[2020-04-15] MEDS: Bacitracin OINTMENT TUBE TOPICAL SCH (14:42)
[2020-04-15] MEDS: Mometasone 220 MCG MDI INH SCH (20:40)
[2020-04-15] MEDS: CMCS:Simvastatin 20 mg TAB (NF) PO SCH (20:41)
[2020-04-16] MEDS: SPIRIVA Respimat (tiotropium) 2.5 mcg/inh Inhaler INH SCH (08:50)
[2020-04-16] MEDS: Potassium Chlor 20 meq TAB.ER PO SCH (09:00)
[2020-04-16] MEDS: Isosorbide Mononit ER 60mg TAB PO SCH (09:00)
[2020-04-16] MEDS: Cholecalciferol (VIT D3) 1,000 unit TAB PO SCH (09:00)
[2020-04-16] MEDS: Insulin GLARGINE 100 un/ml 10 ml VIAL SUBCUT SCH (09:07)
[2020-04-16] MEDS: Bacitracin OINTMENT TUBE TOPICAL SCH (09:09)
[2020-04-16] MEDS: Mometasone 220 MCG MDI INH SCH (19:35)
[2020-04-16] MEDS: CMCS:Simvastatin 20 mg TAB (NF) PO SCH (20:36)
[2020-04-17] MEDS: Bacitracin OINTMENT TUBE TOPICAL SCH (08:10)
[2020-04-17] MEDS: Isosorbide Mononit ER 60mg TAB PO SCH (08:21)
[2020-04-17] MEDS: Cholecalciferol (VIT D3) 1,000 unit TAB PO SCH (08:21)
[2020-04-17] MEDS: Insulin GLARGINE 100 un/ml 10 ml VIAL SUBCUT SCH (08:50)
[2020-04-17] MEDS: SPIRIVA Respimat (tiotropium) 2.5 mcg/inh Inhaler INH SCH (09:39)
[2020-04-17] MEDS: Mometasone 220 MCG MDI INH SCH (19:31)
[2020-04-17] MEDS: CMCS:Simvastatin 20 mg TAB (NF) PO SCH (21:05)
[2020-04-18] MEDS: SPIRIVA Respimat (tiotropium) 2.5 mcg/inh Inhaler INH SCH (07:19)
[2020-04-18] MEDS: Potassium Chlor 20 meq TAB.ER PO SCH (08:23)
[2020-04-18] MEDS: Isosorbide Mononit ER 60mg TAB PO SCH (08:23)
[2020-04-18] MEDS: Cholecalciferol (VIT D3) 1,000 unit TAB PO SCH (08:23)
[2020-04-18] MEDS: Bacitracin OINTMENT TUBE TOPICAL SCH (09:39)
[2020-04-18] MEDS: Insulin GLARGINE 100 un/ml 10 ml VIAL SUBCUT SCH (09:40)
[2020-04-18] MEDS: Mometasone 220 MCG MDI INH SCH (19:21)
[2020-04-18] MEDS: CMCS:Simvastatin 20 mg TAB (NF) PO SCH (21:42)
[2020-04-19] MEDS: SPIRIVA Respimat (tiotropium) 2.5 mcg/inh Inhaler INH SCH (07:23)
[2020-04-19] MEDS: Insulin GLARGINE 100 un/ml 10 ml VIAL SUBCUT SCH (10:03)
[2020-04-19] MEDS: Cholecalciferol (VIT D3) 1,000 unit TAB PO SCH (10:07)
[2020-04-19] MEDS: Isosorbide Mononit ER 60mg TAB PO SCH (10:11)
[2020-04-19] MEDS: Bacitracin OINTMENT TUBE TOPICAL SCH (10:15)
[2020-04-19] MEDS: Mometasone 220 MCG MDI INH SCH (19:44)
[2020-04-19] MEDS: CMCS:Simvastatin 20 mg TAB (NF) PO SCH (21:45)
[2020-04-20] MEDS: SPIRIVA Respimat (tiotropium) 2.5 mcg/inh Inhaler INH SCH (08:17)
[2020-04-20] MEDS: Cholecalciferol (VIT D3) 1,000 unit TAB PO SCH (09:24)
[2020-04-20] MEDS: Insulin GLARGINE 100 un/ml 10 ml VIAL SUBCUT SCH (09:26)
[2020-04-20] MEDS: Potassium Chlor 20 meq TAB.ER PO SCH (09:26)
[2020-04-20] MEDS: Isosorbide Mononit ER 60mg TAB PO SCH (09:33)
[2020-04-20] MEDS: Bacitracin OINTMENT TUBE TOPICAL SCH (09:34)
[2020-04-20] MEDS: CMCS:Simvastatin 20 mg TAB (NF) PO SCH (20:29)
[2020-04-20] MEDS: Mometasone 220 MCG MDI INH SCH (22:34)
[2020-04-21] MEDS: SPIRIVA Respimat (tiotropium) 2.5 mcg/inh Inhaler INH SCH (07:55)
[2020-04-21 07:58] VITALS: BP 135/43
[2020-04-21] MEDS: Cholecalciferol (VIT D3) 1,000 unit TAB PO SCH (09:48)
[2020-04-21] MEDS: Insulin GLARGINE 100 un/ml 10 ml VIAL SUBCUT SCH (09:49)
[2020-04-21] MEDS: Isosorbide Mononit ER 60mg TAB PO SCH (09:50)
[2020-04-21] MEDS: Bacitracin OINTMENT TUBE TOPICAL SCH (10:03)
== END 2020-04-21 17:05 | disposition home or self-care (01) | DRG 179 ==
LOC: MED 16:22
PROVIDERS: ADMIT Internal Medicine; ATTEND Hospitalist

== ENCOUNTER 2020-05-11 17:26 | Inpatient (IN) ==
[2020-05-11 19:14] LABS: ABS Basophils 0.1 10^3/ul (0-0.2); ABS Eosinophils 0.3 10^3/ul (0-0.6); ABS Monocytes 1.2 10^3/ul (0-0.8); ABS Neutrophils 7.1 10^3/ul (1.5-7.7); Eosinophil % 2.6 %; Hematocrit 30 % (35-47); Hemoglobin 9.9 g/dL (12.0-16.0); Mean Corpuscular HGB Conc 34 g/dL (31-36); Mean Corpuscular Hemoglobin 29 pg (27-31); Mean Corpuscular Volume 86 fL (80-97); Mean Platelet Volume 7.2 fL (7.4-10.4); Platelet Count 253 10^3/uL (150-450); Red Blood Count 3.44 10^6 /uL (3.70-4.87); Red Cell Distribution Width 17 % (10-15); White Blood Count 9.7 10^3/uL (3.5-10.8)
[2020-05-11 19:47] LABS: Albumin 3.6 g/dL (3.2-5.2); Albumin/Globulin Ratio 1.3 (1-3); BUN/Creatinine Ratio 18.3 (8-20); Calcium 9.1 mg/dL (8.6-10.3); EGFR African American 117.6 (>60); EGFR Non-African American 97.2 (>60); Globulin 2.8 g/dL (2-4); Potassium 3.7 mmol/L (3.5-5.0); Total Protein 6.4 g/dL (6.4-8.9)
[2020-05-11 21:25] LABS: Urine Appearance Cloudy; Urine Bilirubin Negative (Negative); Urine Blood 1+ (Negative); Urine Color Yellow; Urine Glucose Negative (Negative); Urine Ketones Trace (Negative); Urine Nitrite Negative (Negative); Urine Protein Negative (Negative); Urine Specific Gravity 1.021 (1.010-1.030); Urine Urobilinogen Negative (Negative)
[2020-05-11 21:27] LABS: Urine Bacteria 1+ (Absent); Urine Red Blood Cell 1+(3-5/hpf) (Absent); Urine Squamous Epithelial Cell Present (Absent); Urine White Blood Cell 2+(11-20/hpf) (Absent)
[2020-05-11] MEDS ORDERED: HYDROcodone/ACETAMIN 5/325 mg TAB PO ONE (22:20)
[2020-05-11] MEDS ORDERED: HYDROcodone/ACETAMIN 5/325 mg TAB PO PRN (22:20)
[2020-05-11] MEDS ORDERED: Dextrose 50% Syringe 50 ml 25 GM/50 ML SYRINGE IV PUSH PRN (23:58)
[2020-05-12] MEDS ORDERED: Albuterol HFA INHALER 8 gm MDI INH PRN (00:13)
[2020-05-12] MEDS: Magnesium Hydroxide LIQ 30 ML UDC PO PRN ×2 (00:34→10:32)
[2020-05-12] MEDS: HYDROcodone/ACETAMIN 5/325 mg TAB PO PRN ×4 (04:17→19:56)
[2020-05-12] MEDS: Potassium Chlor 20 meq TAB.ER PO SCH (08:15)
[2020-05-12] MEDS: Isosorbide Mononit ER 60mg TAB PO SCH (08:15)
[2020-05-12] MEDS: SPIRIVA Respimat (tiotropium) 2.5 mcg/inh Inhaler INH SCH (08:35)
[2020-05-12] MEDS: CMCS: Simvastatin 20 mg TAB (NF) PO SCH (17:37)
[2020-05-12] MEDS: Mometasone 220 MCG MDI INH SCH (19:17)
[2020-05-12] MEDS ORDERED: Lidocaine PATCH 5% PATCH TRANSDERM ONE (23:55)
[2020-05-13] MEDS: HYDROcodone/ACETAMIN 5/325 mg TAB PO PRN ×5 (00:20→22:04)
[2020-05-13] MEDS: SPIRIVA Respimat (tiotropium) 2.5 mcg/inh Inhaler INH SCH (07:24)
[2020-05-13] MEDS: Isosorbide Mononit ER 60mg TAB PO SCH (09:48)
[2020-05-13] MEDS ORDERED: Lidocaine Patch REMOVE PATCH PATCH OFF SCH ×2 (12:00→21:00)
[2020-05-13 17:25] LABS: % Iron Saturation 8 % (15-55); Iron 30 ug/dL (50-212); Total Iron Binding Capacity 391 mcg/dL (250-450); Transferrin 279 mg/dL (203-362); Unsaturated Iron Binding < 376 ug/dL
[2020-05-13] MEDS: CMCS: Simvastatin 20 mg TAB (NF) PO SCH (17:44)
[2020-05-13 17:45] LABS: Ferritin 22.6 ng/mL (11-307)
[2020-05-13] MEDS: Mometasone 220 MCG MDI INH SCH (19:42)
[2020-05-13] MEDS: Magnesium Hydroxide LIQ 30 ML UDC PO PRN (19:59)
[2020-05-14] MEDS: HYDROcodone/ACETAMIN 5/325 mg TAB PO PRN ×3 (05:23→21:32)
[2020-05-14 06:27] LABS: ABS Basophils 0.2 10^3/ul (0-0.2); ABS Eosinophils 0.4 10^3/ul (0-0.6); ABS Lymphocytes 0.7 10^3/ul (1.0-4.8); ABS Monocytes 0.8 10^3/ul (0-0.8); ABS Neutrophils 5.7 10^3/ul (1.5-7.7); Hematocrit 30 % (35-47); Hemoglobin 9.8 g/dL (12.0-16.0); Mean Corpuscular HGB Conc 33 g/dL (31-36); Mean Corpuscular Hemoglobin 29 pg (27-31); Mean Corpuscular Volume 87 fL (80-97); Platelet Count 282 10^3/uL (150-450); Red Blood Count 3.44 10^6 /uL (3.70-4.87); Red Cell Distribution Width 16 % (10-15); White Blood Count 7.8 10^3/uL (3.5-10.8)
[2020-05-14 06:42] LABS: BUN/Creatinine Ratio 16.1 (8-20); EGFR African American 127.4 (>60); EGFR Non-African American 105.3 (>60); Magnesium 2.2 mg/dL (1.9-2.7); Potassium 4.5 mmol/L (3.5-5.0)
[2020-05-14] MEDS: SPIRIVA Respimat (tiotropium) 2.5 mcg/inh Inhaler INH SCH (07:49)
[2020-05-14] MEDS ORDERED: Lidocaine PATCH 5% PATCH TRANSDERM SCH (09:00)
[2020-05-14] MEDS ORDERED: Insulin GLARGINE 100 un/ml 10 ml VIAL SUBCUT SCH (09:00)
[2020-05-14] MEDS: Iron Sucrose 200 MG in NS 0.9% 100 ml BAG 100 ML IVPB SCH (09:28)
[2020-05-14] MEDS: Potassium Chlor 20 meq TAB.ER PO SCH (09:28)
[2020-05-14] MEDS: Isosorbide Mononit ER 60mg TAB PO SCH (09:28)
[2020-05-14] MEDS: CMCS: Simvastatin 20 mg TAB (NF) PO SCH (18:26)
[2020-05-14] MEDS: Mometasone 220 MCG MDI INH SCH (19:41)
[2020-05-14] MEDS: Lidocaine PATCH 5% PATCH TRANSDERM SCH (21:31)
[2020-05-15] MEDS: Magnesium Hydroxide LIQ 30 ML UDC PO PRN (00:44)
[2020-05-15] MEDS: HYDROcodone/ACETAMIN 5/325 mg TAB PO PRN ×4 (05:41→21:06)
[2020-05-15] MEDS: SPIRIVA Respimat (tiotropium) 2.5 mcg/inh Inhaler INH SCH (07:30)
[2020-05-15] MEDS: Insulin GLARGINE 100 un/ml 10 ml VIAL SUBCUT SCH (09:30)
[2020-05-15] MEDS: Isosorbide Mononit ER 60mg TAB PO SCH (09:31)
[2020-05-15] MEDS: Iron Sucrose 200 MG in NS 0.9% 100 ml BAG 100 ML IVPB SCH (09:40)
[2020-05-15] MEDS: Lidocaine Patch REMOVE PATCH PATCH OFF SCH (09:47)
[2020-05-15] MEDS: Nystatin TOP POWDER 15 GM BTL TOPICAL SCH ×2 (12:30→23:03)
[2020-05-15] MEDS: CMCS: Simvastatin 20 mg TAB (NF) PO SCH (17:03)
[2020-05-15] MEDS: Mometasone 220 MCG MDI INH SCH (19:29)
[2020-05-15] MEDS: Lidocaine PATCH 5% PATCH TRANSDERM SCH (23:02)
[2020-05-16] MEDS: HYDROcodone/ACETAMIN 5/325 mg TAB PO PRN ×5 (00:10→21:39)
[2020-05-16] MEDS: SPIRIVA Respimat (tiotropium) 2.5 mcg/inh Inhaler INH SCH (07:25)
[2020-05-16] MEDS: Potassium Chlor 20 meq TAB.ER PO SCH (08:29)
[2020-05-16] MEDS: Isosorbide Mononit ER 60mg TAB PO SCH (08:29)
[2020-05-16] MEDS: Insulin GLARGINE 100 un/ml 10 ml VIAL SUBCUT SCH (08:29)
[2020-05-16] MEDS: Lidocaine Patch REMOVE PATCH PATCH OFF SCH (08:30)
[2020-05-16] MEDS: Iron Sucrose 200 MG in NS 0.9% 100 ml BAG 100 ML IVPB SCH (08:41)
[2020-05-16] MEDS: Nystatin TOP POWDER 15 GM BTL TOPICAL SCH ×3 (08:41→21:40)
[2020-05-16] MEDS: CMCS: Simvastatin 20 mg TAB (NF) PO SCH (16:50)
[2020-05-16] MEDS: Mometasone 220 MCG MDI INH SCH (20:13)
[2020-05-16] MEDS: Lidocaine PATCH 5% PATCH TRANSDERM SCH (21:40)
[2020-05-17] MEDS: HYDROcodone/ACETAMIN 5/325 mg TAB PO PRN ×2 (01:30→13:30)
[2020-05-17] MEDS: SPIRIVA Respimat (tiotropium) 2.5 mcg/inh Inhaler INH SCH (08:12)
[2020-05-17] MEDS: Insulin GLARGINE 100 un/ml 10 ml VIAL SUBCUT SCH (09:39)
[2020-05-17] MEDS: Isosorbide Mononit ER 60mg TAB PO SCH (09:39)
[2020-05-17] MEDS: Lidocaine Patch REMOVE PATCH PATCH OFF SCH (09:50)
[2020-05-17] MEDS: Nystatin TOP POWDER 15 GM BTL TOPICAL SCH ×2 (11:50→13:52)
[2020-05-17 15:41] VITALS: BP 133/49
== END 2020-05-17 15:50 | DRG 552 ==
LOC: MED 17:26 → ED 17:26 → MED 05-12 00:06
PROVIDERS: ADMIT Internal Medicine; ATTEND Student in an Organized Health Care Education/Training Program